=== PATIENT | male | born 1935 | race Caucasian/White ===

== ENCOUNTER 2016-09-22 11:41 | Emergency (ER) | payer MEDICARE, OTHER ==
--- NOTE | 2016-09-22 12:16 | ED ---
General Adult HPI - General Chief complaint: Recheck/Abnormal Lab/Rx Stated complaint: Dx dehydrated Time Seen by Provider: 09/22/16 11:50 Source: patient, RN notes reviewed Mode of arrival: wheelchair Limitations: no limitations - History of Present Illness Initial comments: This is an 81-year-old male who presents emergency Department complaining of having a cough and occasionally feeling a little short of breath. Patient states she went to see his primary medical care doctor today and he was told to come the emergency department because they thought he was dehydrated. Patient states she doesn't feel dehydrated patient states he had a 4 day episode of diarrhea which stopped 3 days ago and since he's been drinking quite a bit of water every day. Patient does not believe he needs to be in the emergency department. Patient denies any palpitations or chest pain. Patient denies dizziness lightheadedness or near syncopal episode. Patient denies any fever or chills. Patient states the cough is nonproductive. Patient denies abdominal pain patient denies any nausea vomiting diarrhea. - Related Data Home Medications Medication Instructions Recorded Confirmed Aspirin 81 mg PO HS 11/28/13 09/22/16 Acetaminophen/Diphenhydramine 1 tab PO HS 09/22/16 09/22/16 [Tylenol PM 500-25mg] Atorvastatin [Lipitor] 20 mg PO HS 09/22/16 09/22/16 Cholecalciferol [Vitamin D3] 1,000 unit PO DAILY 09/22/16 09/22/16 DULoxetine HCL [Cymbalta] 30 mg PO DAILY 09/22/16 09/22/16 Gabapentin 600 mg PO TID 09/22/16 09/22/16 Lidocaine 4% Cream [Lmx 4] 1 applic TOPICAL DAILY PRN 09/22/16 09/22/16 Lisinopril [Prinivil] 5 mg PO DAILY 09/22/16 09/22/16 Naproxen 500 mg PO BID 09/22/16 09/22/16 Vit C/E/Zn/Coppr/Lutein/Zeaxan 1 cap PO BID 09/22/16 09/22/16 [Preservision Areds 2 Softgel] Allergies Allergy/AdvReac Type Severity Reaction Status Date / Time codeine Allergy Rash/Hives Verified 09/22/16 12:12 Review of Systems ROS Statement: Those systems with pertinent positive or pertinent negative responses have been documented in the HPI. ROS Other: All systems not noted in ROS Statement are negative. Past Medical History Past Medical History: Coronary Artery Disease (CAD), Hyperlipidemia, Hypertension Additional Past Medical History / Comment(s): RADHA FEET NEUROPATHY, PREVIOUS RX FOR HTN-NO LONGER TAKING, RIGHT INGUINAL HERNIA History of Any Multi-Drug Resistant Organisms: None Reported Past Surgical History: Coronary Bypass/CABG, Orthopedic Surgery Additional Past Surgical History / Comment(s): RADHA FOOT SX, CABG X1,RT INGUINAL REPAIR Past Anesthesia/Blood Transfusion Reactions: No Reported Reaction Past Psychological History: No Psychological Hx Reported Smoking Status: Former smoker Past Alcohol Use History: None Reported Past Drug Use History: None Reported - Past Family History Mother Family Medical History: Cancer, Diabetes Mellitus Brother(s) Family Medical History: Cancer, Diabetes Mellitus, Myocardial Infarction (AL) Additional Family Medical History / Comment(s): HEART PROBLEMS Father Family Medical History: Myocardial Infarction (AL) Sister(s) Family Medical History: Myocardial Infarction (AL) General Exam - General Exam Comments Initial Comments: GENERAL: Patient is well-developed and well-nourished. Patient is nontoxic and well- hydrated and is in no acute distress. ENT: Neck is soft and supple. No significant lymphadenopathy is noted. Oropharynx is clear. Moist mucous membranes. Neck has full range of motion without eliciting any pain. EYES: The sclera were anicteric and conjunctiva were pink and moist. Extraocular movements were intact and pupils were equal round and reactive to light. Eyelids were unremarkable. PULMONARY: Unlabored respirations. Good breath sounds bilaterally. No audible rales rhonchi or wheezing was noted. CARDIOVASCULAR: There is a regular rate and rhythm without any murmurs gallops or rubs. ABDOMEN: Soft and nontender with normal bowel sounds. No palpable organomegaly was noted. There is no palpable pulsatile mass. SKIN: Skin is clear with no lesions or rashes and otherwise unremarkable. NEUROLOGIC: Patient is alert and oriented x3. Cranial nerves II through XII are grossly intact. Motor and sensory are also intact. Normal speech, volume and content. Symmetrical smile. MUSCULOSKELETAL: Normal extremities with adequate strength and full range of motion. No lower extremity swelling or edema. No calf tenderness. LYMPHATICS: No significant lymphadenopathy is noted PSYCHIATRIC: Normal psychiatric evaluation. Limitations: no limitations Course Vital Signs 09/22/16 09/22/16 09/22/16 11:49 13:02 14:38 Temperature 98.1 F Pulse Rate 91 78 80 Respiratory 16 18 Rate Blood Pressure 120/57 127/69 132/73 O2 Sat by Pulse 93 L 93 L 93 L Oximetry 09/22/16 09/22/16 15:30 16:03 Temperature Pulse Rate 86 88 Respiratory 18 18 Rate Blood Pressure 133/74 119/57 O2 Sat by Pulse 93 L 93 L Oximetry Medical Decision Making - Medical Decision Making EKG shows normal sinus rhythm at 82 bpm IA interval 180 QRS is 78 QT interval 338 QTC is 394. Patient's EKG shows no ST segment elevation or depression or T wave abnormalities are noted. CT of the chest shows interstitial lung disease no PE. - Lab Data Result diagrams: 09/22/16 13:45 09/22/16 14:46 Lab Results 09/22/16 09/22/16 09/22/16 Range/Units 13:45 13:45 13:45 WBC 8.9 (3.8-10.6) k/uL RBC 4.53 (4.30-5.90) m/uL Hgb 13.3 (13.0-17.5) gm/dL Hct 39.5 (39.0-53.0) % MCV 87.3 (80.0-100.0) fL MCH 29.4 (25.0-35.0) pg MCHC 33.7 (31.0-37.0) g/dL RDW 14.5 (11.5-15.5) % Plt Count 426 (150-450) k/uL Neutrophils % (Manual) 73.0 % Band Neutrophils % 2.0 % Lymphocytes % (Manual) 8.0 % Monocytes % (Manual) 8.0 % Eosinophils % (Manual) 9.0 % Neutrophils # (Manual) 6.7 (1.3-7.7) k/uL Lymphocytes # (Manual) 0.7 L (1.0-4.8) k/uL Monocytes # (Manual) 0.7 (0-1.0) k/uL Eosinophils # (Manual) 0.8 H (0-0.7) k/uL Nucleated RBCs 0 (0-0) /100 WBC Manual Slide Review Performed Poikilocytosis (manual Present Anisocytosis (manual) Present D-Dimer 1.83 H (<0.60) mg/L FEU Sodium (137-145) mmol/L Potassium (3.5-5.1) mmol/L Chloride (98-107) mmol/L Carbon Dioxide (22-30) mmol/L Anion Gap mmol/L BUN (9-20) mg/dL Creatinine (0.66-1.25) mg/dL Est GFR (MDRD) Af Amer (>60 ml/min/1.73 sqM) Est GFR (MDRD) Non-Af (>60 ml/min/1.73 sqM) Glucose (74-99) mg/dL Calcium (8.4-10.2) mg/dL Total Bilirubin (0.2-1.3) mg/dL AST (17-59) U/L ALT (21-72) U/L Alkaline Phosphatase (38-126) U/L Troponin I <0.012 (0.000-0.034) ng/mL NT-Pro-B Natriuret Pep pg/mL Total Protein (6.3-8.2) g/dL Albumin (3.5-5.0) g/dL 09/22/16 09/22/16 Range/Units 14:46 16:11 WBC (3.8-10.6) k/uL RBC (4.30-5.90) m/uL Hgb (13.0-17.5) gm/dL Hct (39.0-53.0) % MCV (80.0-100.0) fL MCH (25.0-35.0) pg MCHC (31.0-37.0) g/dL RDW (11.5-15.5) % Plt Count (150-450) k/uL Neutrophils % (Manual) % Band Neutrophils % % Lymphocytes % (Manual) % Monocytes % (Manual) % Eosinophils % (Manual) % Neutrophils # (Manual) (1.3-7.7) k/uL Lymphocytes # (Manual) (1.0-4.8) k/uL Monocytes # (Manual) (0-1.0) k/uL Eosinophils # (Manual) (0-0.7) k/uL Nucleated RBCs (0-0) /100 WBC Manual Slide Review Poikilocytosis (manual Anisocytosis (manual) D-Dimer (<0.60) mg/L FEU Sodium 140 (137-145) mmol/L Potassium 5.1 (3.5-5.1) mmol/L Chloride 107 (98-107) mmol/L Carbon Dioxide 20 L (22-30) mmol/L Anion Gap 13 mmol/L BUN 53 H (9-20) mg/dL Creatinine 1.20 (0.66-1.25) mg/dL Est GFR (MDRD) Af Amer >60 (>60 ml/min/1.73 sqM) Est GFR (MDRD) Non-Af 58 (>60 ml/min/1.73 sqM) Glucose 80 (74-99) mg/dL Calcium 10.2 (8.4-10.2) mg/dL Total Bilirubin 0.5 (0.2-1.3) mg/dL AST 28 (17-59) U/L ALT 60 (21-72) U/L Alkaline Phosphatase 131 H (38-126) U/L Troponin I (0.000-0.034) ng/mL NT-Pro-B Natriuret Pep 110 pg/mL Total Protein 6.5 (6.3-8.2) g/dL Albumin 3.3 L (3.5-5.0) g/dL Disposition Clinical Impression: Interstitial lung disease Disposition: HOME SELF-CARE Condition: Good Instructions: Dyspnea (ED) Referrals: Jung Green MD [Primary Care Provider] - 1-2 days Time of Disposition: 16:47
--- NOTE | 2016-09-22 13:03 | XR ---
EXAMINATION TYPE: XR chest 2V DATE OF EXAM: 09/22/2016 COMPARISON: Prior chest x-ray 06/30/2014 HISTORY: Difficulty breathing TECHNIQUE: Frontal and lateral views of the chest are obtained. FINDINGS: Patient is post median sternotomy and rotated. Interstitium is increased and there are ove rlying cardiac leads. Heart size is likely stable accounting for differences in technique, there is b iapical pleural thickening. No pneumothorax or pleural effusion. Pulmonary vascularity and zhanna not s ignificantly changed. IMPRESSION: Interstitial lung disease, correlate for possible pulmonary venous hypertension and inte rstitial edema. Follow-up is recommended.
[2016-09-22 13:04] VITALS: RESP 18
[2016-09-22 13:59] LABS: CH 29.8; CHCM 34.3; HCT 39.5 % (39.0-53.0); HDW 3.07; HGB 13.3 gm/dL (13.0-17.5); MCH 29.4 pg (25.0-35.0); MCHC 33.7 g/dL (31.0-37.0); MCV 87.3 fL (80.0-100.0); Mean Platelet Volume 8.8; RBC 4.53 m/uL (4.30-5.90); RDW 14.5 % (11.5-15.5); WBC 8.9 k/uL (3.8-10.6); WBC (Perox) 9.47
[2016-09-22 14:22] LABS: Add Differential Manual Differential
[2016-09-22 14:24] LABS: Nucleated Red Blood Cells 0 /100 WBC (0-0); Total Cells Counted 100
[2016-09-22 14:29] LABS: Manual Review Performed
[2016-09-22 15:14] LABS: ALT 60 U/L (21-72); AST 28 U/L (17-59); Alkaline Phosphatase 131 U/L (38-126); Anion Gap 13 mmol/L; Blood Urea Nitrogen 53 mg/dL (9-20); Calcium 10.2 mg/dL (8.4-10.2); Carbon Dioxide 20 mmol/L (22-30); Chloride 107 mmol/L (98-107); Glucose 80 mg/dL (74-99); Non-African American GFR(MDRD) 58 (>60 ml/min/1.73 sqM); Potassium 5.1 mmol/L (3.5-5.1); Sodium 140 mmol/L (137-145); Total Bilirubin 0.5 mg/dL (0.2-1.3); Total Protein 6.5 g/dL (6.3-8.2)
[2016-09-22] MEDS ORDERED: RX INFO: IV CONTRAST WAS GIVEN 1 EACH MISC MISCELLANE PRN (15:14)
--- NOTE | 2016-09-22 16:11 | CT ---
EXAMINATION TYPE: CT chest angio for PE DATE OF EXAM: 09/22/2016 COMPARISON: NONE HISTORY: Shortness of breath rule out pulmonary embolism CONTRAST: CT chest with contrast and 3D reconstruction with MIP imaging is performed with IV Contrast, patient injected with 80 mL of Visipaque 320. Contrast-enhanced CT of the chest was performed through the course of the pulmonary arteries with patrice g and mediastinal window settings submitted. 3D reconstruction with MIP imaging was also performed. PULMONARY ARTERIES: The pulmonary arteries and their major tributaries are patent. I do not see mike dence for sizable filling defect to suggest pulmonary embolic process. LUNGS: Scattered subpleural fibrosis. Scattered groundglass infiltrates within the upper lobes may re flect acute inflammatory process. Scattered emphysematous changes identified. MEDIASTINUM: Ascending thoracic aortic aneurysm measuring 4.2 cm AP dimension. No evidence for dissec tion. The heart is mildly enlarged. Small sliding-type hiatal hernia. No evidence for mediastinal mas s. No mediastinal lymph nodes greater than 1cm. HILAR STRUCTURES: No evidence for mass. No hilar lymph nodes greater than 1 cm. UPPER ABDOMEN: No significant abnormality is seen. IMPRESSION: 1. No evidence for Pulmonary embolism at this time. 2. Subpleural fibrosis throughout both lung silver. Scattered areas of groundglass infiltrate may ref lect acute inflammatory process. 3. Ascending thoracic aortic aneurysm. 4. Small sliding-type hiatal hernia.
[2016-09-22] MEDS ORDERED: SODIUM CHLORIDE 0.9% 1,000 ML IV ONE (16:48)
[2016-09-22 17:11] VITALS: BP 113/59; PULSE 87; TEMP 98.7
== END 2016-09-22 17:41 | disposition home or self-care (01) ==
LOC: EC 11:41
DX: J84.9 Interstitial pulmonary disease, unspecified (principal); R19.7 Diarrhea, unspecified; I25.10 Atherosclerotic heart disease of native coronary artery without angina pectoris; I10 Essential (primary) hypertension; E78.5 Hyperlipidemia, unspecified; Z87.891 Personal history of nicotine dependence; Z79.82 Long term (current) use of aspirin; Z79.1 Long term (current) use of non-steroidal anti-inflammatories (NSAID); Z79.899 Other long term (current) drug therapy; Z88.5 Allergy status to narcotic agent
CPT/HCPCS: 36415; 93005; 85379; 83880; 80053; 84484; 85025; 71020; 71275; 99284; 96360; Q9967

== ENCOUNTER → 2016-11-14 | Outpatient (CLI) | payer MEDICARE, OTHER ==
--- NOTE | 2016-11-14 14:35 | CT ---
EXAMINATION TYPE: CT chest wo con DATE OF EXAM: 11/14/2016 COMPARISON: CTA chest September 22, 2016 HISTORY: interstitial lung disease CT DLP: 199.0 mGycm. Automated Exposure Control for Dose Reduction was Utilized. TECHNIQUE: CT scan of the thorax is performed without IV contrast. High resolution protocol with 10 mm sequences obtained in supine and prone technique FINDINGS: LUNGS: Background of moderate emphysematous change is present. There is some reticulation and fibrosi s bilaterally most prominent in the periphery of the lower lungs. There is suspicious residual 7 mm n odule right midlung on axial image 29 less prominent than prior study though evaluation for subcentim eter nodularity is suboptimal on this exam due to protocol. There is moderate biapical pleural and pa renchymal scarring redemonstrated. No bronchiectasis or suspicious peribronchial wall thickening. No pleural effusion or pneumothorax is present. There is interval improvement in scattered groundglass o pacity bilaterally. MEDIASTINUM: Lack of IV contrast is noted to limit evaluation for mediastinal and especially hilar ad enopathy. There are no definitive greater than 1 cm hilar or mediastinal lymph nodes. No cardiomega ly or pericardial effusion is seen. Post CABG changes with mediastinal clips and sternal wires is red emonstrated. Ascending aorta measures up to 4.0 cm in diameter unchanged from prior. OTHER: There is stable small size fixed hiatal hernia. There is multilevel spurring in thoracic spine seen. More prominent spurring and disc space narrowing is seen in lumbar spine on localizer image IMPRESSION: Moderate emphysematous change with scattered fibrosis most prominent in the periphery of the lower lungs, IPF cannot be excluded. Interval improvement in groundglass opacity consistent with resolving edema and/or infiltrates. Note is made of persistent 7 mm right midlung nodule. Appropriate CT follow-up advised.
== END | disposition home or self-care (01) ==
LOC: RADCTMAIN 13:06
PROVIDERS: ATTEND Internal Medicine Sleep Medicine
DX: J43.9 Emphysema, unspecified (principal); J84.10 Pulmonary fibrosis, unspecified; R91.1 Solitary pulmonary nodule; R91.8 Other nonspecific abnormal finding of lung field
CPT/HCPCS: 71250

== ENCOUNTER → 2017-05-08 | Outpatient (CLI) | payer MEDICARE, OTHER ==
--- NOTE | 2017-05-08 10:05 | CT ---
EXAMINATION TYPE: CT chest wo con DATE OF EXAM: 05/08/2017 COMPARISON: 11/14/2016 and 09/22/2016 HISTORY: 82-year-old male COPD, shortness of breath, SHARAN TECHNIQUE: Contiguous axial scanning of the chest without IV contrast. Coronal and sagittal reconstru ctions performed. CT DLP: 700 mGycm Automated exposure control for dose reduction was used. FINDINGS: Median sternotomy wires are present with post-CABG clips. Heart normal size. No pericardial effusion. Ascending aorta mildly aneurysmal at 4.1 cm, unchanged. Moderate atherosclerotic arch calcifications with conventional arch vessel branching anatomy. Ectatic lower descending thoracic aorta at 2.7 cm. Stable 9 mm pulmonary nodule anterior right mid lung along the minor fissure. There is moderate centr ilobular emphysema. Biapical pleural parenchymal scarring. The groundglass infiltrates show improveme nt from 09/22/2016. Some mild patchy peripheral and bibasilar groundglass is present there is also josefa e subpleural microcystic change peripherally in the lower lungs. Borderline enlarged caliber to the main right and left pulmonary arteries at 2.6 and 2.5 cm, respecti vely, suggesting underlying pulmonary arterial hypertension. Prominent cisterna lymph nodes measuring 8 mm in the left tracheobronchial angle, 9 mm precarinal and 1.3 cm subcarinal are unchanged. No thoracic lymphadenopathy by CT size criteria. Small hiatal hernia. Calcified granulomas noted within the spleen. Partially visualized punctate 2 to 3 mm calculus left kidney. There is a 1.5 cm fat density nodule along the anterior first portion of the duodenum compatible with a intramural lipoma. Bones: Endplate spondylosis mid to lower thoracic spine. No osseous destructive process. IMPRESSION: 1. COPD WITH MODERATE EMPHYSEMA. UNDERLYING PULMONARY ARTERIAL HYPERTENSION IS SUSPECTED. 2. MINIMAL RESIDUAL PERIPHERAL AND BIBASILAR GROUNDGLASS AND SUBPLEURAL MICROCYSTIC CHANGE, RELATIVEL Y STABLE COMPARED TO 11/14/2016. IMPROVED FROM 09/22/2016. CORRELATE FOR NSIP. EARLY UIP CHANGES DIF FICULT TO EXCLUDE BUT CONSIDERED LESS LIKELY AT THIS TIME. 2. STABLE 9 MM RIGHT MID LUNG PULMONARY NODULE COMPARED TO 09/22/2016. GIVEN STABILITY OVER 8 MONTH S, A BENIGN ETIOLOGY IS FAVORED. RECOMMEND AN ADDITIONAL ONE-YEAR FOLLOW-UP. 3. STABLE MILD ANEURYSM ASCENDING AORTA (4.1 CM) AND SMALL HIATAL HERNIA.
== END | disposition home or self-care (01) ==
LOC: RADCTMAIN 09:26
PROVIDERS: ATTEND Internal Medicine Sleep Medicine
DX: J43.9 Emphysema, unspecified (principal); I71.2 Thoracic aortic aneurysm, without rupture; R91.8 Other nonspecific abnormal finding of lung field
CPT/HCPCS: 71250

== ENCOUNTER → 2017-10-17 | Outpatient (CLI) | payer MEDICARE, OTHER ==
--- NOTE | 2017-10-17 10:42 | CT ---
EXAMINATION TYPE: CT angio chest DATE OF EXAM: 10/17/2017 COMPARISON: CTA chest September 22, 2016 HISTORY: Shortness of breath rule out pulmonary embolism CT DLP: 516 mGycm. Automated Exposure Control for Dose Reduction was Utilized. CONTRAST: CTA scan of the thorax is performed with IV Contrast, patient injected with 100 mL of Isovue 370, pul monary embolism protocol. MIP Images are created on CT scanner and reviewed. FINDINGS: LUNGS: Fairly moderate underlying emphysematous changes redemonstrated. There is moderate biapical pl eural/parenchymal scarring redemonstrated. There is stable 9 x 8 mm nodule right midlung axial image 72 that appears to correspond to intrafissural lymph node on coronal images presumed benign. There ar e some additional scattered areas of parenchymal fibrosis bilaterally most prominent in the periphery of both lungs. There is marked interval improvement in diffuse groundglass opacity and reticular int erstitial markings bilaterally from prior study consistent with resolving edema and/or infiltrates. N o pleural effusion or pneumothorax is noted bilaterally. Tracheobronchial tree is patent. MEDIASTINUM: There is satisfactory enhancement of the pulmonary artery and its branches, there is no CT evidence for pulmonary embolism. There are no new greater than 1 cm noncalcified hilar or medias tinal lymph nodes. No cardiomegaly or pericardial effusion is seen. Post CABG changes with mediasti nal clips and sternal wires is redemonstrated. OTHER: Small hiatal hernia is redemonstrated. Occasional calcifications scattered throughout the sple en is presumed product of old granulomatous disease. More prominent calcification in region of pancre atic tail likely reflects small calcified splenic artery aneurysm is stable axial image 138. There is multilevel spurring in the spine with slight scoliotic curvature redemonstrated. There is moderate m ixed plaque in visualized aorta. IMPRESSION: 1. No CT evidence for acute pulmonary embolism. 2. Moderate emphysematous change with scattered fairly moderate fibrosis. Marked interval improvement in alveolar and interstitial edema and/or infiltrates bilaterally from prior.
== END | disposition home or self-care (01) ==
LOC: RADCTMAIN 09:44
PROVIDERS: ATTEND Internal Medicine Sleep Medicine
DX: J43.9 Emphysema, unspecified (principal); J84.10 Pulmonary fibrosis, unspecified
CPT/HCPCS: 82565; 84520; 71275; 36415; Q9967

== ENCOUNTER 2019-10-24 10:46 | Observation (INO) | payer MEDICARE, OTHER ==
[2019-10-24] MEDS ORDERED: LIDOCAINE 1% INJ 10MG/ML (20 ML MDV) SQ ONE (11:07)
--- NOTE | 2019-10-24 11:12 | ED ---
Fall HPI <Norm Steel - Last Filed: 10/24/19 13:23> - General Source: patient Mode of arrival: ambulatory <Debby Lima - Last Filed: 10/24/19 13:25> - General Chief Complaint: Fall Stated Complaint: Head Lac Time Seen by Provider: 10/24/19 10:51 - History of Present Illness Initial Comments: Patient is a 84-year-old male presenting to the emergency department via EMS after he fell this morning. Patient states he is unsure how he fell and how long he was out. He states he remembers going to the grocery store, came home and was putting away groceries, the next thing he remembers he was waking up with blood on the floor. She does have a laceration above his left eyebrow, bleeding is controlled with a bandage. Patient states he drove himself to a clinic who in return called EMS to bring him to the ER. Patient denies having any head or neck pain. He denies being on blood thinners. He denies any chest pain, shortness of breath, abdominal pain, extremity pain. He states he has never had a syncopal episode. He denies any new medications. Denies any other recent falls or trauma. He has no further complaints. Upon arrival to the ER, his vital signs are stable. (Debby Lima) - Related Data Home Medications Medication Instructions Recorded Confirmed Aspirin 81 mg PO HS 11/28/13 09/22/16 Acetaminophen/Diphenhydramine 1 tab PO HS 09/22/16 09/22/16 [Tylenol PM 500-25mg] Atorvastatin [Lipitor] 20 mg PO HS 09/22/16 09/22/16 Cholecalciferol [Vitamin D3] 1,000 unit PO DAILY 09/22/16 09/22/16 DULoxetine HCL [Cymbalta] 30 mg PO DAILY 09/22/16 09/22/16 Gabapentin 600 mg PO TID 09/22/16 09/22/16 Lidocaine 4% Cream [Lmx 4] 1 applic TOPICAL DAILY PRN 09/22/16 09/22/16 Naproxen 500 mg PO BID 09/22/16 09/22/16 Vit C/E/Zn/Coppr/Lutein/Zeaxan 1 cap PO BID 09/22/16 09/22/16 [Preservision Areds 2 Softgel] lisinopriL [Prinivil] 5 mg PO DAILY 09/22/16 09/22/16 Allergies Allergy/AdvReac Type Severity Reaction Status Date / Time codeine Allergy Rash/Hives Verified 09/22/16 12:12 Review of Systems ROS Other: All systems not noted in ROS Statement are negative. <RobinsonpattiNorm pisano - Last Filed: 10/24/19 13:23> ROS Other: All systems not noted in ROS Statement are negative. <Debby Lima - Last Filed: 10/24/19 13:25> ROS Statement: Those systems with pertinent positive or pertinent negative responses have been documented in the HPI. Past Medical History Past Medical History: Coronary Artery Disease (CAD), Hyperlipidemia, Hypertension Additional Past Medical History / Comment(s): RADHA FEET NEUROPATHY, PREVIOUS RX FOR HTN-NO LONGER TAKING, RIGHT INGUINAL HERNIA History of Any Multi-Drug Resistant Organisms: None Reported Past Surgical History: Coronary Bypass/CABG, Orthopedic Surgery Additional Past Surgical History / Comment(s): RADHA FOOT SX, CABG X1,RT INGUINAL REPAIR Past Anesthesia/Blood Transfusion Reactions: No Reported Reaction Past Psychological History: No Psychological Hx Reported Smoking Status: Former smoker Past Alcohol Use History: None Reported Past Drug Use History: None Reported - Past Family History Mother Family Medical History: Cancer, Diabetes Mellitus Brother(s) Family Medical History: Cancer, Diabetes Mellitus, Myocardial Infarction ([place]) Additional Family Medical History / Comment(s): HEART PROBLEMS Father Family Medical History: Myocardial Infarction ([place]) Sister(s) Family Medical History: Myocardial Infarction ([place]) <Debby Lima - Last Filed: 10/24/19 13:25> General Exam Limitations: no limitations <Debby Lima - Last Filed: 10/24/19 13:25> - General Exam Comments Initial Comments: GENERAL: Patient is well-developed and well-nourished. Patient is nontoxic and in no acute distress. HEAD: Normocephalic, patient has a hematoma on the left forehead underneath the laceration. EYES: Pupils equal round and reactive to light, extraocular movements intact, sclera anicteric, conjunctiva are normal. Eyelids were unremarkable. No pain with palpation of the orbit, bilaterally. ENT: TMs normal, nares patent, oropharynx clear without exudates. Moist mucous membranes. NECK: Patient arrived in c-collar, no midline tenderness. Normal range of motion, supple without lymphadenopathy or JVD. LUNGS: Unlabored respirations. Breath sounds clear to auscultation bilaterally and equal. No wheezes rales or rhonchi. HEART: Regular rate and rhythm without murmurs, rubs or gallops. ABDOMEN: Soft, nontender, normoactive bowel sounds. No guarding, no rebound. No masses appreciated. : Deferred MUSCULOSKELETAL: Normal extremities with adequate strength and normal range of motion, no pitting or edema. No clubbing or cyanosis. NEUROLOGICAL: Patient is alert and oriented x 3. Motor and sensory are also intact. Cranial nerves II through XII grossly intact. Symmetrical smile. Normal speech, normal gait. PSYCH: Normal mood, normal affect. SKIN: Warm, Dry, normal turgor, no rashes. Patient has a 2 cm T-shaped laceration above his right eyebrow, with a small hematoma present. Bleeding is controlled with a bandage. (Debby Lima) Course <Norm Steel - Last Filed: 10/24/19 13:23> Vital Signs 10/24/19 10/24/19 10/24/19 10:48 11:30 13:08 Temperature 98.0 F Pulse Rate 79 75 Pulse Rate [ 74 Sitting] Pulse Rate [ 87 Standing] Pulse Rate [ 72 Supine] Respiratory 18 16 Rate Blood Pressure 143/77 171/85 Blood Pressure 146/83 [Sitting] Blood Pressure 138/82 [Standing] Blood Pressure 173/83 [Supine] O2 Sat by Pulse 98 99 Oximetry - Reevaluation(s) Reevaluation #1: 10/24/19 13:23 Patient evaluated, resting comfortably, stable vitals, orthostatic vitals do reveal that the patient is symptomatic while standing. He is given IV hydration. He will be kept for telemetry, hydration, echo. Case discussed with Dr. Rodas he will admit. (Norm Steel) Procedures - Laceration Laceration #1 Consent Obtained: verbal consent Indication: laceration Site: face (Left forehead) Size (cm): 2 Description: irregular (T-shaped) Depth: simple, single layer Anesthetic Used: lidocaine 1% Anesthesia Technique: local infiltration Amount (mls): 3 Pre-repair: irrigated extensively Type of Sutures: nylon Size of Sutures: 5-0 Number of Sutures: 6 Technique: simple, interrupted Patient Tolerated Procedure: well <Debby Lima - Last Filed: 10/24/19 13:25> Medical Decision Making - Lab Data Result diagrams: 10/24/19 11:50 10/24/19 11:50 <Norm Steel - Last Filed: 10/24/19 13:23> - Lab Data Result diagrams: 10/24/19 11:50 10/24/19 11:50 <Debby Lima - Last Filed: 10/24/19 13:25> - Medical Decision Making Patient is an 84-year-old male who had a syncopal episode at home and then came to, drove himself to a clinic who then called EMS. Patient does not know how he fell. He does live alone. He does have a 2 cm T state laceration to his left eyebrow. He is not on blood thinners. EMS did place a c-collar. He denies any kind of pain at this time. Besides the laceration and hematoma, his exam is unremarkable. EKG shows no acute process. Secondary to syncopal episode I did do some blood work was currently reveals no acute process. (Debby Lima) - Lab Data Lab Results 10/24/19 10/24/19 10/24/19 Range/Units 11:50 11:50 11:50 WBC 12.3 H (3.8-10.6) k/uL RBC 4.87 (4.30-5.90) m/uL Hgb 13.8 (13.0-17.5) gm/dL Hct 43.3 (39.0-53.0) % MCV 88.9 (80.0-100.0) fL MCH 28.4 (25.0-35.0) pg MCHC 32.0 (31.0-37.0) g/dL RDW 14.6 (11.5-15.5) % Plt Count 275 (150-450) k/uL Neutrophils % 79 % Lymphocytes % 8 % Monocytes % 6 % Eosinophils % 4 % Basophils % 1 % Neutrophils # 9.7 H (1.3-7.7) k/uL Lymphocytes # 1.0 (1.0-4.8) k/uL Monocytes # 0.7 (0-1.0) k/uL Eosinophils # 0.5 (0-0.7) k/uL Basophils # 0.1 (0-0.2) k/uL PT 10.4 (9.0-12.0) sec INR 1.0 (<1.2) APTT 23.9 (22.0-30.0) sec Sodium 141 (137-145) mmol/L Potassium 5.7 H (3.5-5.1) mmol/L Chloride 107 (98-107) mmol/L Carbon Dioxide 29 (22-30) mmol/L Anion Gap 5 mmol/L BUN 28 H (9-20) mg/dL Creatinine 1.12 (0.66-1.25) mg/dL Est GFR (CKD-EPI)AfAm 69 (>60 ml/min/1.73 sqM) Est GFR (CKD-EPI)NonAf 60 (>60 ml/min/1.73 sqM) Glucose 111 H (74-99) mg/dL Calcium 9.5 (8.4-10.2) mg/dL Total Bilirubin 0.6 (0.2-1.3) mg/dL AST 22 (17-59) U/L ALT 20 (4-49) U/L Alkaline Phosphatase 109 (38-126) U/L Troponin I (0.000-0.034) ng/mL Total Protein 6.7 (6.3-8.2) g/dL Albumin 4.0 (3.5-5.0) g/dL 10/24/19 Range/Units 11:50 WBC (3.8-10.6) k/uL RBC (4.30-5.90) m/uL Hgb (13.0-17.5) gm/dL Hct (39.0-53.0) % MCV (80.0-100.0) fL MCH (25.0-35.0) pg MCHC (31.0-37.0) g/dL RDW (11.5-15.5) % Plt Count (150-450) k/uL Neutrophils % % Lymphocytes % % Monocytes % % Eosinophils % % Basophils % % Neutrophils # (1.3-7.7) k/uL Lymphocytes # (1.0-4.8) k/uL Monocytes # (0-1.0) k/uL Eosinophils # (0-0.7) k/uL Basophils # (0-0.2) k/uL PT (9.0-12.0) sec INR (<1.2) APTT (22.0-30.0) sec Sodium (137-145) mmol/L Potassium (3.5-5.1) mmol/L Chloride (98-107) mmol/L Carbon Dioxide (22-30) mmol/L Anion Gap mmol/L BUN (9-20) mg/dL Creatinine (0.66-1.25) mg/dL Est GFR (CKD-EPI)AfAm (>60 ml/min/1.73 sqM) Est GFR (CKD-EPI)NonAf (>60 ml/min/1.73 sqM) Glucose (74-99) mg/dL Calcium (8.4-10.2) mg/dL Total Bilirubin (0.2-1.3) mg/dL AST (17-59) U/L ALT (4-49) U/L Alkaline Phosphatase (38-126) U/L Troponin I <0.012 (0.000-0.034) ng/mL Total Protein (6.3-8.2) g/dL Albumin (3.5-5.0) g/dL - EKG Data EKG Comments: Normal sinus rhythm, possible left atrial enlargement, no signs of acute is chemia. Ventricular rate 76, NJ interval 170, QT 370. (Debby Lima) Disposition <Norm Steel - Last Filed: 10/24/19 13:23> Decision Date: 10/24/19 Decision Time: 13:25 <Debby Lima - Last Filed: 10/24/19 13:25> Clinical Impression: Syncope, Fall, Orthostatic hypotension Disposition: ADMITTED IP TO THIS [facility] Condition: Stable Referrals: Jung Green MD [Primary Care Provider] - 1-2 days
--- NOTE | 2019-10-24 11:47 | CT ---
EXAMINATION TYPE: CT brain cspine wo con, CT facial bones wo con DATE OF EXAM: 10/24/2019 COMPARISON: NONE HISTORY: Fall injury with headache, facial pain, and neck pain. CT DLP: 1196.7 (accession [id number]), Inc. in brain/c-spine (accession [id number]) [facility]. Automated Expo sure Control for Dose Reduction was Utilized. TECHNIQUE: CT scan of the head and cervical spine are performed without contrast. FINDINGS: There is no acute intracranial hemorrhage or midline shift identified. Mild to moderate d iffuse ventricular and sulcal prominence. Damico-white matter differentiation fairly well maintained f or patient's age. The calvarium is intact. The mandible is intact. Temporomandibular joints are maintained bilaterally. The zygomatic arches are intact bilaterally. The pterygoid plates are intact. Nasal bones are intact. Orbital floors and wall s are intact. The globes are intact bilaterally. Intraconal fat is preserved bilaterally. There are h ypoplastic bilateral frontal sinuses. There is mild mucosal thickening with small mucous retention cy st or polyp in the left maxillary sinus inferiorly. Small left orbital region noted. Cervical spine is visualized in its entirety from C1 through upper thoracic levels and demonstrates l evoconvex scoliosis centered upper thoracic spine without evidence of acute fracture or dislocation. Straightening of spine on sagittal images. Prevertebral soft tissue appears within normal limits. Th e C1-C2 articulation shows asymmetric left-sided narrowing and spurring on coronal images. Vertebral body heights are maintained. There is [id number] multilevel spurring and disc space narrowin g in the cervical spine. There is posterior spinal canal stimulator from the C3-C4 disc space through the superior C7 level. Axial images show multilevel uncovertebral facet degenerative changes bilaterally contributing to mul tilevel bilateral neural foraminal narrowing. Visualized portion of the thyroid gland is unremarkable . Visualized lung apices show no pneumothorax. IMPRESSION: 1. There is no acute fracture or dislocation evident in the cervical spine. 2. No acute intracranial hemorrhage or midline shift is seen. 3. No acute displaced facial bone fracture. Small focal left frontal acute subcutaneous hematoma.
[2019-10-24 12:02] LABS: Basophils # (A) 0.1 k/uL (0-0.2); Basophils % (A) 1 %; Eosinophils # (A) 0.5 k/uL (0-0.7); Eosinophils % (A) 4 %; HCT 43.3 % (39.0-53.0); HGB 13.8 gm/dL (13.0-17.5); Lymphocytes % (A) 8 %; MCH 28.4 pg (25.0-35.0); MCV 88.9 fL (80.0-100.0); Mean Platelet Volume 7.9; Monocytes # (A) 0.7 k/uL (0-1.0); Monocytes % (A) 6 %; Neutrophils # (A) 9.7 k/uL (1.3-7.7); Neutrophils % (A) 79 %; Platelet Count 275 k/uL (150-450); RBC 4.87 m/uL (4.30-5.90); RDW 14.6 % (11.5-15.5); WBC 12.3 k/uL (3.8-10.6)
[2019-10-24 12:14] LABS: Calcium 9.5 mg/dL (8.4-10.2); Potassium 5.7 mmol/L (3.5-5.1); Total Bilirubin 0.6 mg/dL (0.2-1.3); Total Protein 6.7 g/dL (6.3-8.2)
[2019-10-24 12:18] LABS: Partial Thromboplastin Time 23.9 sec (22.0-30.0); Prothrombin Time 10.4 sec (9.0-12.0)
--- NOTE | 2019-10-24 12:18 | XR ---
EXAMINATION TYPE: XR chest 2V DATE OF EXAM: 10/24/2019 COMPARISON: Chest x-ray October 17, 2017. 2 view chest x-ray September 22, 2016. HISTORY: Syncope. Weakness. TECHNIQUE: Frontal and lateral views of the chest are obtained. FINDINGS: There is background chronic emphysematous and pulmonary fibrotic changes without suspiciou s new air space opacity, pleural effusion, or pneumothorax seen bilaterally. Overlying sternal wires and mediastinal clips are redemonstrated. The cardiac silhouette size remains within normal limits. The osseous structures are intact. IMPRESSION: Chronic changes without acute pulmonary process.
[2019-10-24] MEDS ORDERED: NALOXONE 0.4 MG/ML 1 ML VIAL IV PRN (13:21)
[2019-10-24] MEDS ORDERED: SODIUM CHLORIDE 0.9% 1,000 ML IV SCH (13:30)
[2019-10-24] MEDS ORDERED: CYCLOBENZAPRINE 5 MG TAB PO PRN (14:18)
[2019-10-24] MEDS ORDERED: NAPROXEN 250 MG TAB PO PRN (14:18)
[2019-10-24] MEDS ORDERED: SODIUM POLYSTYRENE SULFONATE 15 GM/60 ML BOTTLE PO STA (14:26)
[2019-10-24] MEDS: DULoxetine HCL 60 MG CAPSULE.DR PO SCH (15:26)
[2019-10-24] MEDS: ENOXAPARIN 40 MG/0.4 ML SYRINGE SQ SCH (15:26)
[2019-10-24] MEDS: SODIUM CHLORIDE 0.9% 1,000 ML IV SCH (15:29)
--- NOTE | 2019-10-24 17:08 | P.HPIM ---
History of Present Illness H&P Date: 10/24/19 Chief Complaint: Past out History of presenting complaint: This is a pleasant 84 the patient . Chronic stable medical conditions include coronary artery disease with a bypass, hyperlipidemia, hypertension, Andree arthritis, pulmonary fibrosis, peripheral neuropathy, diverticulosis, chronic cervical pain. Patient is up in the kitchen doing things next thing he remembers is waking up on the floor and bleeding from his forehead. Patient denies having any chest pain or palpitation. Had no premonitory symptoms. No tongue biting or incontinence. Patient received stitches to the forehead. Very late rarely when patient gets gets up he gets dizzy. Currently no chest pain or short of breath. Review of systems: GEN.: None EYES: None HEENT: Left forehead laceration NECK: None RESPIRATORY: None CARDIOVASCULAR: None GASTROINTESTINAL: None GENITOURINARY: None MUSCULOSKELETAL: Joint pains LYMPHATICS: None HEMATOLOGICAL: None PSYCHIATRY: None NEUROLOGICAL: Nil focal.. Past medical history to include: Coronary artery disease with a bypass, hypertension, hyperlipidemia, osteoarthritis, pulmonary fibrosis, peripheral neuropathy, diverticulosis, peripheral arterial disease, chronic cervical pain, early macular degeneration Social history: Lives alone. Patient smoked from 1954 through 1981. No alcohol. Physical examination: VITAL SIGNS: 98, 74, blood pressure lying down 173/8 3, standing 1 38 x 82, 99% room air GENERAL: BMI 30, propped up in bed, awake. EYES: Pupils equal. Conjunctiva normal. HEENT: External appearance of nose and ears normal, oral cavity grossly normal laceration on the left forehead with stitches. NECK: JVD not raised; masses not palpable. HEART: First and second heart sounds are normal; no edema. LUNGS: Respiratory rate normal; clear to auscultation. ABDOMEN: Soft, nontender, liver spleen not palpable, no masses palpable. PSYCH: Alert and oriented x3; mood and affect normal. NEUROLOGICAL: Cranial nerves grossly intact; no facial asymmetry, power and sensation grossly intact. MUSCULAR skeletal: Evidence of OA LYMPHATICS: No lymph nodes palpable in the axilla and neck INVESTIGATIONS, reviewed in the clinical context: White count 12.3 hemoglobin 13.8 platelets 275 potassium 5.7 creatinine 1.12 EKG tracing personally reviewed by me-normal sinus rhythm Chest x-ray film personally reviewed by me-possible chronic changes Assessment: -This is a patient who had an episode of passing out. Had no premonitory symptoms. No seizure supportive evidence. Patient's found to be be orthostatic. -Rule out arrhythmia patient is on a telemetry -Coronary artery disease with history of bypass -Essential hypertension -Hyperlipidemia -Primary osteoarthritis -Chronic pulmonary fibrosis -Peripheral neuropathy -Colonic diverticulosis -Chronic cervical pain Plan: Patient be given IV fluids and check orthostatics again. We'll see her do a CT angiogram the neck to look for any vascular compromise. Is also due pain x-ray of the neck. Home medications to be continued. Patient's been on telemetry. Care was discussed with the patient questions answered. Past Medical History Past Medical History: Coronary Artery Disease (CAD), Eye Disorder, Hyperlipidemia, Hypertension, Osteoarthritis (OA), Respiratory Disorder, Vascular Disorder Additional Past Medical History / Comment(s): PT states his physician discontinued his HTN medications, pulmonary fibrosis, murmur, neuropathy bilateral feet, diverticular disease/benign polyps, poor circulation L leg, arthritis bilateral knees/hands/neck, chronic cercical pain, bilateral beginnings of macular degeneration History of Any Multi-Drug Resistant Organisms: None Reported Past Surgical History: Coronary Bypass/CABG, Heart Catheterization, Hernia Repair, Orthopedic Surgery Additional Past Surgical History / Comment(s): 2007 CABG 1 vessel, bilateral feet corrective surgery, R inguinal hernia repair, colonoscopy/benign polypectomy Past Anesthesia/Blood Transfusion Reactions: No Reported Reaction Additional Past Anesthesia/Blood Transfusion Reaction / Comment(s): Pt unsure if he received blood with CABG surgery Smoking Status: Former smoker - Past Family History Mother Family Medical History: Cancer, Diabetes Mellitus Brother(s) Family Medical History: Cancer, Diabetes Mellitus, Myocardial Infarction ([place]) Additional Family Medical History / Comment(s): Brother had several MIs. He is . Father Family Medical History: Myocardial Infarction ([place]) Additional Family Medical History / Comment(s): father of a MT at the age of 63 yrs. Sister(s) Family Medical History: Myocardial Infarction ([place]) Medications and Allergies Home Medications Medication Instructions Recorded Confirmed Type Aspirin 81 mg PO HS 11/28/13 10/24/19 History Atorvastatin [Lipitor] 20 mg PO HS 09/22/16 10/24/19 History Cholecalciferol [Vitamin D3] 1,000 unit PO DAILY 09/22/16 10/24/19 History Naproxen 500 mg PO BID PRN 09/22/16 10/24/19 History Vit C/E/Zn/Coppr/Lutein/Zeaxan 1 cap PO DAILY 09/22/16 10/24/19 History [Preservision Areds 2 Softgel] Cyclobenzaprine [Flexeril] 5 mg PO HS PRN 10/24/19 10/24/19 History DULoxetine HCL [Cymbalta] 60 mg PO DAILY 10/24/19 10/24/19 History Fluticasone/Vilanterol [Breo 1 puff INHALATION RT-DAILY 10/24/19 10/24/19 History Ellipta 100-25 Mcg Inhaler] Allergies Allergy/AdvReac Type Severity Reaction Status Date / Time codeine Allergy Rash/Hives Verified 10/24/19 13:36 Physical Exam Vitals: Vital Signs Temp Pulse Pulse Pulse Pulse Resp BP 10/24/19 15:20 97.7 F 78 18 10/24/19 15:00 98.2 F 70 16 156/82 10/24/19 13:08 74 87 72 10/24/19 11:30 75 16 171/85 10/24/19 10:48 98.0 F 79 18 143/77 BP BP BP Pulse Ox 10/24/19 15:20 173/81 99 10/24/19 15:00 99 10/24/19 13:08 146/83 138/82 173/83 10/24/19 11:30 99 10/24/19 10:48 98 Intake and Output 10/24/19 10/24/19 10/24/19 06:59 14:59 22:59 Other: Weight 84.368 kg 84.368 kg Results CBC & Chem 7: 10/24/19 11:50 10/24/19 11:50 Labs: Abnormal Lab Results - Last 24 Hours (Table) 10/24/19 10/24/19 Range/Units 11:50 11:50 WBC 12.3 H (3.8-10.6) k/uL Neutrophils # 9.7 H (1.3-7.7) k/uL Potassium 5.7 H (3.5-5.1) mmol/L BUN 28 H (9-20) mg/dL Glucose 111 H (74-99) mg/dL Thrombosis Risk Factor Assmnt - Choose All That Apply Any of the Below Risk Factors Present?: Yes Each Factor Represents 1 point: Obesity (BMI >25) Other Risk Factors: Yes Each Risk Factor Represents 3 Points: Age 75 years or older Other congenital or acquired thrombophilia - If yes, enter type in comment: No Thrombosis Risk Factor Assessment Total Risk Factor Score: 4 Thrombosis Risk Factor Assessment Level: Moderate Risk
[2019-10-24] MEDS ORDERED: CALCIUM GLUCONATE 1 GM in SODIUM CHLORIDE 0.9% 100 ML IVPB ONE (18:00)
--- NOTE | 2019-10-24 18:35 | XR ---
PROCEDURE: XR cervical spine w flex/ext - 9V DATE AND TIME: 10/24/2019 6:11 PM CLINICAL INDICATION: PHH; Chronic neck pain. Patient passed out. TECHNIQUE: 9 views were obtained, including lateral views in the neutral, extension and flexion posit ions. COMPARISON: None FINDINGS: Bilateral paramidline metallic leads are superimposed over the spinal laminar junction on t he lateral projections, and superimposed over the spinous processes on the AP projections. These lead s extend from the level of C3 to the level of C7. There is no fracture. No spinal malalignment. Markedly advanced cervical spondylosis changes are seen at all levels. No focal skeletal lesion. The soft tissues are unremarkable. IMPRESSION: No acute radiographic process.
--- NOTE | 2019-10-24 18:38 | ECHOF ---
Referral Reason:Syncopal event MEASUREMENTS -------- HEIGHT: 167.6 cm WEIGHT: 84.4 kg BP: 119/76 RVIDd: 3.5 cm (< 3.3) IVSd: 1.4 cm (0.6 - 1.1) LVIDd: 3.6 cm (3.9 - 5.3) LVPWd: 1.5 cm (0.6 - 1.1) IVSs: 1.8 cm LVIDs: 2.7 cm LVPWs: 2.0 cm LAESV Index (A-L): 31.23 ml/m Ao Diam: 3.0 cm (2.0 - 3.7) AV Cusp: 2.0 cm (1.5 - 2.6) MV EXCURSION: 14.414 mm (> 18.000) MV EF SLOPE: 61 mm/s (70 - 150) EPSS: 0.7 cm MV E Luke: 0.56 m/s MV DecT: 253 ms MV A Luke: 0.86 m/s MV E/A Ratio: 0.65 RAP: 5.00 mmHg RVSP: 31.69 mmHg FINDINGS -------- Sinus rhythm. This was a technically difficult study with suboptimal views. The left ventricular size is normal. There is moderate concentric left ventricular hypertrophy. O verall left ventricular systolic function is low-normal with, an EF between 50 - 55 %. Septal wall motion is delayed and consistent with prior cardiac surgery. The right ventricle is mildly enlarged. LA is midly dilated 29-33ml/m2. The right atrium was not well visualized. 5.0mg of Lumason was utilized for enhancement of images Interatrial and interventricular septum intact. There is mild aortic valve sclerosis. There is no evidence of aortic regurgitation. There is no e vidence of aortic stenosis. Mild mitral annular calcification present. Mild mitral regurgitation is present. Mild tricuspid regurgitation present. Right ventricular systolic pressure is normal at < 35 mmHg. The right ventricular systolic pressure, as measured by Doppler, is 31.69mmHg. The pulmonic valve was not well visualized. Trace/mild (physiologic) pulmonic regurgitation. The aortic root size is normal. IVC Not well visulized. There is no pericardial effusion. CONCLUSIONS -------- 1. There is moderate concentric left ventricular hypertrophy. 2. Overall left ventricular systolic function is low-normal with, an EF between 50 - 55 %. 3. Septal wall motion is delayed and consistent with prior cardiac surgery. 4. The right ventricle is mildly enlarged. 5. LA is midly dilated 29-33ml/m2. 6. There is mild aortic valve sclerosis. 7. Mild mitral regurgitation is present. 8. Mild tricuspid regurgitation present. 9. Trace/mild (physiologic) pulmonic regurgitation. R PROGRAMMER: Lashell Pineda RDCS
[2019-10-24] MEDS: SYMBICORT 80-4.5 MCG INHALER INHALATION SCH (19:33)
[2019-10-24] MEDS: ACETAMINOPHEN TAB 325 MG TAB PO PRN (20:02)
[2019-10-24] MEDS: ATORVASTATIN 20 MG TAB PO SCH (20:02)
[2019-10-24] MEDS: ASPIRIN 81 MG PO SCH (20:02)
--- NOTE | 2019-10-24 22:16 | CT ---
EXAMINATION TYPE: CT angio neck with contrast and with 3-D reconstruction renderings DATE OF EXAM: 10/24/2019 HISTORY: Syncope. COMPARISON: 01/29/[address] DLP: 528.9 mGycm. Automated Exposure Control for Dose Reduction was Utilized. TECHNIQUE: CTA scan of the neck is performed with IV Contrast, patient injected with 65ml mL of Isov ue 370, axial images are obtained, coronal and sagittal reformatted images are reviewed. Three-D amie nstructed images are created on an independent workstation and reviewed. FINDINGS: GREAT VASCULATURE: Ascending aorta is mildly dilated, measuring 4 cm caliber. CAROTID ARTERY SYSTEMS: The right and left CCA are widely patent, there is prominent right-sided tort uosity noted. The right and left ECA are widely patent. Previously known proximal right ICA stenosis currently measures approximately 90% luminal diameter na rrowing, with prominent poststenotic dilation noted. Remainder of the right ICA widely patent. Previously known proximal left ICA stenosis currently measures approximately 50-60% luminal diameter narrowing, with mild poststenotic dilation noted. Remainder of the left ICA widely patent. VERTEBRAL ARTERY SYSTEM: The right and left vertebral arteries are widely patent throughout their cer vical course. OTHER: No acute soft tissue or skeletal findings. IMPRESSION: 1. RIGHT ICA: APPROXIMATELY 90% STENOSIS. 2. LEFT ICA: APPROXIMATELY 50-60% STENOSIS. 3. ASCENDING AORTIC DIAMETER 4.0 CM.
[2019-10-25] MEDS: SODIUM CHLORIDE 0.9% 1,000 ML IV SCH ×2 (03:01→08:47)
[2019-10-25 07:16] LABS: Calcium 9.2 mg/dL (8.4-10.2); Potassium 4.4 mmol/L (3.5-5.1)
[2019-10-25] MEDS: SYMBICORT 80-4.5 MCG INHALER INHALATION SCH ×2 (08:38→19:09)
[2019-10-25] MEDS: CHOLECALCIFEROL 1,000 UNIT TAB PO SCH (08:42)
[2019-10-25] MEDS: DULoxetine HCL 60 MG CAPSULE.DR PO SCH (08:42)
[2019-10-25] MEDS: ENOXAPARIN 40 MG/0.4 ML SYRINGE SQ SCH (08:42)
[2019-10-25] MEDS: ASPIRIN 81 MG PO SCH (20:28)
[2019-10-25] MEDS: FLUDROCORTISONE 0.1 MG TAB PO SCH (20:28)
[2019-10-25] MEDS: ATORVASTATIN 20 MG TAB PO SCH (20:29)
[2019-10-25] MEDS: ACETAMINOPHEN TAB 325 MG TAB PO PRN (20:29)
--- NOTE | 2019-10-25 21:02 | P.PN ---
Progress Note - Text Progress Note Date: 10/25/19 Chief Complaint: Past out History of presenting complaint: This is a pleasant 84 the patient . Chronic stable medical conditions include coronary artery disease with a bypass, hyperlipidemia, hypertension, Andree arthritis, pulmonary fibrosis, peripheral neuropathy, diverticulosis, chronic cervical pain. Patient is up in the kitchen doing things next thing he remembers is waking up on the floor and bleeding from his forehead. Patient denies having any chest pain or palpitation. Had no premonitory symptoms. No tongue biting or incontinence. Patient received stitches to the forehead. Very rarely when patient gets gets up, he gets dizzy. Patient admitted with orthostatic hypertension leading to syncope and left forehead laceration with stitches. Started IV fluids. Today-feeling better. Still orthostatic. No chest pain. Review of systems: Was done for constitutional, cardiovascular, GI, pulmonary. relevant finding as above Active Medications Acetaminophen (Tylenol Tab) 650 mg PO Q6HR PRN PRN Reason: Mild Pain or Fever > 100.5 Last Admin: 10/25/19 20:29 Dose: 650 mg Documented by: Aspirin (Aspirin) 81 mg PO HS [facility] Last Admin: 10/25/19 20:28 Dose: 81 mg Documented by: Atorvastatin Calcium (Lipitor) 20 mg PO HS [facility] Last Admin: 10/25/19 20:29 Dose: 20 mg Documented by: Budesonide/Formoterol Fumarate (Symbicort 80-4.5 Mcg Inhaler) 2 puff INHALATION RT-BID [facility] Last Admin: 10/25/19 19:09 Dose: 2 puff Documented by: Cholecalciferol (Vitamin D3 (25 Mcg = 1000 Iu)) 1,000 unit PO DAILY [facility] Last Admin: 10/25/19 08:42 Dose: 1,000 unit Documented by: Cyclobenzaprine HCl (Flexeril) 5 mg PO HS PRN PRN Reason: Muscle Spasm Duloxetine HCl (Cymbalta) 60 mg PO DAILY [facility] Last Admin: 10/25/19 08:42 Dose: 60 mg Documented by: Enoxaparin Sodium (Lovenox) 40 mg SQ DAILY [facility] Last Admin: 10/25/19 08:42 Dose: 40 mg Documented by: Fludrocortisone Acetate (Florinef) 0.1 mg PO BID [facility] Last Admin: 10/25/19 20:28 Dose: 0.1 mg Documented by: Naloxone HCl (Narcan) 0.2 mg IV Q2M PRN PRN Reason: Opioid Reversal Naproxen (Naprosyn) 500 mg PO BID PRN PRN Reason: Pain Physical examination: VITAL SIGNS: 97.6, 82, 16, 150/76, 95% room air GENERAL: Negative bed, awake EYES: Pupils equal. Conjunctiva normal. HEENT: External appearance of nose and ears normal, oral cavity grossly normal laceration on the left forehead with stitches. NECK: JVD not raised; masses not palpable. HEART: First and second heart sounds are normal; no edema. LUNGS: Respiratory rate normal; clear to auscultation. ABDOMEN: Soft, nontender, liver spleen not palpable, no masses palpable. PSYCH: Alert and oriented x3; mood and affect normal. NEUROLOGICAL: Cranial nerves grossly intact; no facial asymmetry, power and sensation grossly intact. INVESTIGATIONS, reviewed in the clinical context: Potassium 4.4 creatinine 0.98 Previous testing White count 12.3 hemoglobin 13.8 platelets 275 potassium 5.7 creatinine 1.12 EKG tracing personally reviewed by me-normal sinus rhythm Chest x-ray film personally reviewed by me-possible chronic changes 2-D echocardiogram-a 50-55% Cervical spine [id number] marked advanced cervical spondylosis CT angios and neck with contrast-approximately 90% stenosis in the right ICA, left ICA 50-60%, ascending Aorta diameter 4 cm Assessment: -Symptomatic orthostatic hypertension. Bilateral MATEUSZ stockings added. Add Florinef 0.1 mg twice a day. -Right internal carotid artery stenosis about 90%. -Rule out arrhythmia patient is on a telemetry -Coronary artery disease with history of bypass -Essential hypertension -Hyperlipidemia -Primary osteoarthritis -Chronic pulmonary fibrosis -Peripheral neuropathy -Colonic diverticulosis -Chronic cervical pain Plan: DC IV fluids. Add Florinef 0.1 mg twice a day. MATEUSZ stockings. Consult vascular surgery.
[2019-10-26 04:02] VITALS: RESP 16
[2019-10-26 07:06] LABS: Calcium 8.8 mg/dL (8.4-10.2); Potassium 4.3 mmol/L (3.5-5.1)
[2019-10-26 08:34] VITALS: TEMP 97.5
[2019-10-26] MEDS: CHOLECALCIFEROL 1,000 UNIT TAB PO SCH (08:34)
[2019-10-26] MEDS: FLUDROCORTISONE 0.1 MG TAB PO SCH (08:34)
[2019-10-26] MEDS: DULoxetine HCL 60 MG CAPSULE.DR PO SCH (08:34)
[2019-10-26] MEDS: ENOXAPARIN 40 MG/0.4 ML SYRINGE SQ SCH (08:35)
[2019-10-26] MEDS: SYMBICORT 80-4.5 MCG INHALER INHALATION SCH (09:03)
[2019-10-26 12:05] VITALS: BP 141/63; PULSE 75
--- NOTE | 2019-10-26 19:33 | P.DS ---
Providers Date of admission: 10/24/19 13:26 Expected date of discharge: 10/26/19 Attending physician: Gumaro Rodas Consults: 10/25/19 21:03 Consult Physician Routine Consulting Provider: Janee Bustamante Consult Reason/Comments: Right ICA 90% Do you want consulting provider notified?: Yes Primary care physician: [facility] Course: Chief Complaint: Past out History of presenting complaint: This is a pleasant 84 the patient . Chronic stable medical conditions include coronary artery disease with a bypass, hyperlipidemia, hypertension, Andree arthritis, pulmonary fibrosis, peripheral neuropathy, diverticulosis, chronic cervical pain. Patient is up in the kitchen doing things next thing he remembers is waking up on the floor and bleeding from his forehead. Patient denies having any chest pain or palpitation. Had no premonitory symptoms. No tongue biting or incontinence. Patient received stitches to the forehead. Very rarely when patient gets gets up, he gets dizzy. Patient admitted with orthostatic hypertension leading to syncope and left forehead laceration with stitches. Started IV fluids. Patient is given MATEUSZ stockings. Florinef was added. Orthostatic corrected. Today-patient doing very well today. Discussed with the patient. Has bruising on the left eye which is improving. Patient has 90% stenosis in the right internal carotid artery. Discussed with Dr. Bustamante from us with surgery. Patient has no focal signs. Patient will follow-up as an outpatient. Questions were answered. Discussion and discharge planning more than 35 minutes Physical examination: VITAL SIGNS: 97.5, 88, 16, 132/61, 97% room air GENERAL: Sitting on bed, comfortable EYES: Pupils equal. Conjunctiva normal. Left periorbital bilateral bruising HEENT: External appearance of nose and ears normal, oral cavity grossly normal laceration on the left forehead with stitches. NECK: JVD not raised; masses not palpable. HEART: First and second heart sounds are normal; no edema. LUNGS: Respiratory rate normal; clear to auscultation. ABDOMEN: Soft, nontender, liver spleen not palpable, no masses palpable. PSYCH: Alert and oriented x3; mood and affect normal. NEUROLOGICAL: Cranial nerves grossly intact; no facial asymmetry, power and sensation grossly intact. INVESTIGATIONS, reviewed in the clinical context: Potassium 4.3 creatinine 0.9 to Previous testing White count 12.3 hemoglobin 13.8 platelets 275 potassium 5.7 creatinine 1.12 EKG tracing personally reviewed by me-normal sinus rhythm Chest x-ray film personally reviewed by me-possible chronic changes 2-D echocardiogram-a 50-55% Cervical spine [id number] marked advanced cervical spondylosis CT angios and neck with contrast-approximately 90% stenosis in the right ICA, left ICA 50-60%, ascending Aorta diameter 4 cm Assessment: -Symptomatic orthostatic hypertension. Bilateral MATEUSZ stockings added. Add Florinef 0.1 mg twice a day.-Much improved. Leading to syncope on presentation. -Right internal carotid artery stenosis about 90%. -Coronary artery disease with history of bypass -Essential hypertension -Hyperlipidemia -Primary osteoarthritis -Chronic pulmonary fibrosis -Peripheral neuropathy -Colonic diverticulosis -Chronic cervical pain Disposition: Home Patient Condition at Discharge: Stable Plan - Discharge Summary Discharge Rx Participant: No New Discharge Prescriptions: New Fludrocortisone [Florinef] 0.1 mg PO BID #60 tab Continue Aspirin 81 mg PO HS Naproxen 500 mg PO BID PRN PRN Reason: Pain Cholecalciferol [Vitamin D3 (25 Mcg = 1000 Iu)] 1,000 unit PO DAILY Atorvastatin [Lipitor] 20 mg PO HS Vit C/E/Zn/Coppr/Lutein/Zeaxan [Preservision Areds 2 Softgel] 1 cap PO DAILY Cyclobenzaprine [Flexeril] 5 mg PO HS PRN PRN Reason: Muscle Spasm DULoxetine HCL [Cymbalta] 60 mg PO DAILY Fluticasone/Vilanterol [Breo Ellipta 100-25 Mcg Inhaler] 1 puff INHALATION RT-DAILY Discharge Medication List Aspirin 81 mg PO HS 11/28/13 [History] Atorvastatin [Lipitor] 20 mg PO HS 09/22/16 [History] Cholecalciferol [Vitamin D3 (25 Mcg = 1000 Iu)] 1,000 unit PO DAILY 09/22/16 [History] Naproxen 500 mg PO BID PRN 09/22/16 [History] Vit C/E/Zn/Coppr/Lutein/Zeaxan [Preservision Areds 2 Softgel] 1 cap PO DAILY 09/22/16 [History] Cyclobenzaprine [Flexeril] 5 mg PO HS PRN 10/24/19 [History] DULoxetine HCL [Cymbalta] 60 mg PO DAILY 10/24/19 [History] Fluticasone/Vilanterol [Breo Ellipta 100-25 Mcg Inhaler] 1 puff INHALATION RT- DAILY 10/24/19 [History] Fludrocortisone [Florinef] 0.1 mg PO BID #60 tab 10/26/19 [Rx] Follow up Appointment(s)/Referral(s): Jung Green MD [Primary Care Provider] - 1-2 days Janee Bustamante DO [STAFF PHYSICIAN] - 1 Week Patient Instructions/Handouts: Syncope (DC) Discharge Disposition: HOME SELF-CARE
== END 2019-10-26 13:33 | disposition home or self-care (01) ==
LOC: EC 10:46 → 3SCARD 13:26
PROVIDERS: ADMIT Hospitalist; ATTEND Hospitalist
DX: I95.1 Orthostatic hypotension (principal); S01.81XA Laceration without foreign body of other part of head, initial encounter; S00.12XA Contusion of left eyelid and periocular area, initial encounter; I65.21 Occlusion and stenosis of right carotid artery; I25.10 Atherosclerotic heart disease of native coronary artery without angina pectoris; I10 Essential (primary) hypertension; E78.5 Hyperlipidemia, unspecified; M19.90 Unspecified osteoarthritis, unspecified site; J84.10 Pulmonary fibrosis, unspecified; G62.9 Polyneuropathy, unspecified; K57.30 Diverticulosis of large intestine without perforation or abscess without bleeding; M47.892 Other spondylosis, cervical region; I73.9 Peripheral vascular disease, unspecified; H35.30 Unspecified macular degeneration; M17.0 Bilateral primary osteoarthritis of knee; M19.042 Primary osteoarthritis, left hand; M19.041 Primary osteoarthritis, right hand; I08.3 Combined rheumatic disorders of mitral, aortic and tricuspid valves; E66.9 Obesity, unspecified; Z68.30 Body mass index [BMI] 30.0-30.9, adult; Z79.82 Long term (current) use of aspirin; Z79.899 Other long term (current) drug therapy; Z79.1 Long term (current) use of non-steroidal anti-inflammatories (NSAID); Z79.51 Long term (current) use of inhaled steroids; Z88.5 Allergy status to narcotic agent; Z87.19 Personal history of other diseases of the digestive system; Z95.1 Presence of aortocoronary bypass graft; Z98.890 Other specified postprocedural states; Z87.891 Personal history of nicotine dependence; Z86.010 Personal history of colon polyps; Z80.9 Family history of malignant neoplasm, unspecified; Z83.3 Family history of diabetes mellitus; Z82.49 Family history of ischemic heart disease and other diseases of the circulatory system; W19.XXXA Unspecified fall, initial encounter; Y93.89 Activity, other specified; Y92.010 Kitchen of single-family (private) house as the place of occurrence of the external cause
CPT/HCPCS: 96372 ×3; 12011; 99285; 36415; 94640 ×4; 93005; 80053; 80048 ×2; 84484; 85025; 85610; 85730; 72052; 71046; 72125; 70486; 70450; 70498; G0378 ×3; C8929; J2001; J1650 ×3; J0610; Q9950; Q9967; 93306

== ENCOUNTER → 2020-07-20 | Outpatient (CLI) | payer MEDICARE, OTHER ==
--- NOTE | 2020-07-20 11:07 | CT ---
EXAMINATION TYPE: CT lumbar spine wo con DATE OF EXAM: 07/20/2020 10:04 AM COMPARISON: None. HISTORY: Lumbago CT DLP: 898 mGycm Automated exposure control for dose reduction was used. Unenhanced CT of the lumbar spine was performed. Bone and soft tissue window settings are submitted as well as coronal and sagittal reconstructions. There are 5 lumbar-type vertebra. There is slight levoconvex scoliosis centered at L3 level. There is slight grade 1 retrolisthesis L2 on L3. Vertebral body heights are maintained. Advanced disc space n arrowing with endplate sclerosis and vacuum disc phenomenon right L2-L3 and L3-L4 levels. Moderate to advanced disc space narrowing with vacuum disc phenomenon at the left L1-L2 and the L4-L5 level. Mil d to moderate disc space narrowing secondary phenomenon at the L5-S1 level. Additional moderate multi level anterior and lateral spurring. Axial images at T12-L1 level appear within normal limits. Axial images at L1-L2 level show posterior disc complex with mild to moderate uncovertebral facet deg enerative changes and ligamentum flavum hypertrophy. There is effacement of the anterior and benzol still operator l ateral thecal sac on axial image 21. There is asymmetric xvlg-ce-nlgjyvtr left-sided inferior neural foraminal narrowing due to foraminal spur disc complex. Axial images at the L2-L3 level show spondylolisthesis and more prominent right paracentral spur disc complex effacing the anterior thecal sac. There is mild/moderate facet arthropathy and ligament hype rtrophy effacing the posterior lateral thecal sac. There is erxlwspa-cr-kpqydx right and oiuq-xo-wroa rate left-sided neural foraminal narrowing. Axial images at L3-L4 level show moderate facet arthropathy and ligamentum flavum hypertrophy pressin g posterior lateral thecal sac. There is moderate posterior spur disc complex effacing anterior theca l sac. There is moderate bilateral neural foraminal narrowing. Axial images at the L4-L5 level show moderate to advanced facet arthropathy and ligamentum flavum hyp ertrophy effacing posterior lateral thecal sac. There is left paracentral spur disc complex. There is moderate to severe left and mild right-sided neural foraminal narrowing. Encroachment on exiting lef t L4 nerve suspected sagittal images 22 and 23. Axial images at L5-S1 level show moderate facet arthropathy bilaterally. There is posterior spur disc complex. There is moderate to severe left sided neural foraminal narrowing. There is mild right-side d neural foraminal narrowing. Encroachment on right L5 nerve suspected image 23 suspected. Moderate to severe calcified plaque of the ectatic overlying abdominal aorta without greater than 3.0 cm aneurysm. IMPRESSION: Scoliosis. L2-L3 spondylolisthesis. Moderate to advanced multilevel degenerative changes as detailed above.
== END | disposition home or self-care (01) ==
LOC: RADCTMAIN 09:28
PROVIDERS: ATTEND Psychiatry & Neurology Neurology
DX: M47.816 Spondylosis without myelopathy or radiculopathy, lumbar region (principal); M43.16 Spondylolisthesis, lumbar region
CPT/HCPCS: 72131

== ENCOUNTER → 2021-01-04 | Outpatient (CLI) | payer MEDICARE, OTHER | END | disposition home or self-care (01) | LOC: LABWHC1 14:15 | PROVIDERS: ATTEND Psychiatry & Neurology Neurology | DX: Z01.812 Encounter for preprocedural laboratory examination (principal) | CPT/HCPCS: 93005 ==

== ENCOUNTER → 2021-01-11 | Outpatient (CLI) | payer MEDICARE, OTHER | END | disposition home or self-care (01) | LOC: LABWHC1 10:01 | PROVIDERS: ATTEND Psychiatry & Neurology Neurology | DX: Z01.812 Encounter for preprocedural laboratory examination (principal); Z20.822 Contact with and (suspected) exposure to COVID-19 | CPT/HCPCS: U0003; C9803; U0005 ==

== ENCOUNTER 2022-01-02 17:53 | Inpatient (IN) | payer MEDICARE, OTHER ==
--- NOTE | 2022-01-02 18:15 | ED ---
Allergic Reaction HPI - General Chief complaint: Allergic Reaction Stated complaint: Allergic Reaction Time Seen by Provider: 01/02/22 17:57 Source: EMS Mode of arrival: EMS Limitations: altered mental status (Patient does appear mildly delirious) - History of Present Illness Initial Comments: This patient is an 86-year-old man brought in by EMS to have evaluation for suspected ALLERGIC reaction. The patient reportedly taking a penicillin family antibiotic for pneumonia. The patient had been having some skin redness for 1-2 days. Today family noted that the rash was worsening. He had lip swelling. The patient was also becoming disoriented and was too weak to get up from his chair. They phoned EMS who found the patient hypotensive on their arrival with blood pressure reported to be with systolic pressure of 80s. EMS started an IV started giving IV fluids, gave dose of Solu-Medrol 125 mg and epinephrine 0.3 mg. Not a transported the patient here. On arrival, the patient is per the report more alert area he is able to give details of his history now. He reports feeling weak and rundown for a couple of days. Here he denies pain, d yspnea, nausea and vomiting. He does complain of itching. MD Complaint: hives, facial swelling -: days(s) Exposure: medication Symptoms: rash, lip swelling Severity: severe Treatment Prior to Arrival: epinephrine, steroids Previous Allergy History: none - Related Data Home Medications Medication Instructions Recorded Confirmed Aspirin 81 mg PO HS 11/28/13 01/02/22 Atorvastatin [Lipitor] 20 mg PO HS 09/22/16 01/02/22 Vit C/E/Zn/Coppr/Lutein/Zeaxan 1 cap PO BID 09/22/16 01/02/22 [Preservision Areds 2 Softgel] Acetaminophen/Diphenhydramine 1 tab PO HS 01/02/22 01/02/22 [Tylenol PM 500-25mg] Amoxic-Pot Clav 500-125 mg 1 tab PO BID 01/02/22 01/02/22 [Augmentin 500-125 mg] Cholecalciferol [Vitamin D3 (25 25 mcg PO DAILY 01/02/22 01/02/22 Mcg = 1000 Iu)] Metoprolol Tartrate [Lopressor] 25 mg PO BID 01/02/22 01/02/22 carBAMazepine [TEGretol] 100 mg PO BID 01/02/22 01/02/22 Allergies Allergy/AdvReac Type Severity Reaction Status Date / Time codeine Allergy Rash/Hives Verified 01/02/22 18:42 Sulfa (Sulfonamide Allergy Unknown Verified 01/02/22 18:42 Antibiotics) Review of Systems ROS Statement: Those systems with pertinent positive or pertinent negative responses have been documented in the HPI. ROS Other: All systems not noted in ROS Statement are negative. Limitations: ROS unobtainable due to patients medical condition (Delirium) Respiratory: Reports: other (Frequent sneezing). Denies: cough, dyspnea Cardiovascular: Denies: chest pain Gastrointestinal: Denies: abdominal pain, nausea, vomiting, diarrhea Genitourinary: Denies: dysuria Musculoskeletal: Denies: back pain Skin: Reports: rash Neurological: Denies: headache Past Medical History Past Medical History: Coronary Artery Disease (CAD), Eye Disorder, Hyperlipidemia, Hypertension, Osteoarthritis (OA), Respiratory Disorder, Vascu lar Disorder Additional Past Medical History / Comment(s): PT states his physician discontinued his HTN medications, pulmonary fibrosis, murmur, neuropathy bilateral feet, diverticular disease/benign polyps, poor circulation L leg, arthritis bilateral knees/hands/neck, chronic cercical pain, bilateral beginnings of macular degeneration History of Any Multi-Drug Resistant Organisms: None Reported Past Surgical History: Coronary Bypass/CABG, Heart Catheterization, Hernia Repair, Orthopedic Surgery Additional Past Surgical History / Comment(s): 2007 CABG 1 vessel, bilateral feet corrective surgery, R inguinal hernia repair, colonoscopy/benign polypectomy Past Anesthesia/Blood Transfusion Reactions: No Reported Reaction Additional Past Anesthesia/Blood Transfusion Reaction / Comment(s): Pt unsure if he received blood with CABG surgery Past Psychological History: No Psychological Hx Reported Smoking Status: Former smoker Past Alcohol Use History: None Reported Past Drug Use History: None Reported - Past Family History Mother Family Medical History: Cancer, Diabetes Mellitus Brother(s) Family Medical History: Cancer, Diabetes Mellitus, Myocardial Infarction (ND) Additional Family Medical History / Comment(s): Brother had several MIs. He is . Father Family Medical History: Myocardial Infarction (ND) Additional Family Medical History / Comment(s): father of a ND at the age of 63 yrs. Sister(s) Family Medical History: Myocardial Infarction (ND) General Exam Limitations: no limitations General appearance: alert Head exam: Present: atraumatic, normocephalic Eye exam: Present: normal appearance. Absent: scleral icterus, conjunctival injection ENT exam: Present: normal oropharynx Neck exam: Present: full ROM. Absent: meningismus Respiratory exam: Present: normal lung sounds bilaterally. Absent: respiratory distress, wheezes, rales, rhonchi, stridor Cardiovascular Exam: Present: normal rhythm, tachycardia (Rate 104 at my exam), normal heart sounds. Absent: systolic murmur, diastolic murmur, rubs, gallop GI/Abdominal exam: Present: soft. Absent: distended, tenderness, guarding, rebound, rigid, mass Extremities exam: Present: normal inspection, normal capillary refill. Absent: pedal edema, calf tenderness Back exam: Present: normal inspection. Absent: CVA tenderness (R), CVA tenderness (L) Neurological exam: Present: alert Skin exam: Present: warm, dry, intact, rash, erythema, urticaria Course Vital Signs 01/02/22 01/02/22 01/02/22 17:57 18:00 18:10 Temperature 98.9 F Pulse Rate 109 H 106 H 106 H Pulse Rate [ Pulse Oximetery ] Respiratory 20 26 H 21 Rate Blood Pressure 121/64 121/64 118/53 Blood Pressure [Right Arm] O2 Sat by Pulse 95 96 94 L Oximetry 01/02/22 01/02/22 01/02/22 18:20 18:30 18:40 Temperature Pulse Rate 107 H 107 H 104 H Pulse Rate [ Pulse Oximetery ] Respiratory 19 18 16 Rate Blood Pressure 118/53 106/52 106/52 Blood Pressure [Right Arm] O2 Sat by Pulse 92 L 95 90 L Oximetry 01/02/22 01/02/22 01/02/22 18:50 19:00 19:10 Temperature Pulse Rate 106 H 106 H 105 H Pulse Rate [ Pulse Oximetery ] Respiratory 19 20 19 Rate Blood Pressure 109/49 109/49 116/74 Blood Pressure [Right Arm] O2 Sat by Pulse 94 L 93 L 93 L Oximetry 01/02/22 01/02/22 01/02/22 19:20 19:30 19:40 Temperature Pulse Rate 105 H 103 H 103 H Pulse Rate [ Pulse Oximetery ] Respiratory 17 20 18 Rate Blood Pressure 116/74 99/56 99/56 Blood Pressure [Right Arm] O2 Sat by Pulse 90 L 95 96 Oximetry 01/02/22 01/02/22 01/02/22 19:50 20:00 20:10 Temperature Pulse Rate 108 H 104 H 101 H Pulse Rate [ Pulse Oximetery ] Respiratory 18 16 22 Rate Blood Pressure 119/69 119/69 122/53 Blood Pressure [Right Arm] O2 Sat by Pulse Oximetry 01/02/22 01/02/22 01/02/22 20:20 20:30 20:40 Temperature Pulse Rate 99 101 H 96 Pulse Rate [ Pulse Oximetery ] Respiratory 22 20 21 Rate Blood Pressure 122/53 109/61 109/61 Blood Pressure [Right Arm] O2 Sat by Pulse Oximetry 01/02/22 01/02/22 01/02/22 20:50 21:00 21:10 Temperature Pulse Rate 97 98 96 Pulse Rate [ Pulse Oximetery ] Respiratory 17 19 19 Rate Blood Pressure 111/46 111/46 115/54 Blood Pressure [Right Arm] O2 Sat by Pulse Oximetry 01/02/22 01/02/22 01/02/22 21:20 21:30 22:17 Temperature 97.8 F Pulse Rate 93 92 Pulse Rate [ Pulse Oximetery ] Respiratory 16 17 Rate Blood Pressure 115/54 121/63 Blood Pressure [Right Arm] O2 Sat by Pulse 96 Oximetry 01/02/22 22:20 Temperature 98.1 F Pulse Rate Pulse Rate [ 88 Pulse Oximetery ] Respiratory 18 Rate Blood Pressure Blood Pressure 111/69 [Right Arm] O2 Sat by Pulse 94 L Oximetry Medical Decision Making - Lab Data Result diagrams: 01/02/22 18:55 01/02/22 18:55 Lab Results 01/02/22 01/02/22 01/02/22 Range/Units 18:55 18:55 18:55 WBC 9.6 (3.8-10.6) k/uL RBC 3.46 L (4.30-5.90) m/uL Hgb 11.0 L (13.0-17.5) gm/dL Hct 30.0 L (39.0-53.0) % MCV 86.9 (80.0-100.0) fL MCH 31.7 (25.0-35.0) pg MCHC 36.5 (31.0-37.0) g/dL RDW 14.1 (11.5-15.5) % Plt Count 112 L (150-450) k/uL MPV 9.5 Neutrophils % 80 % Lymphocytes % 8 % Monocytes % 2 % Eosinophils % 6 % Basophils % 0 % Neutrophils # 7.6 (1.3-7.7) k/uL Lymphocytes # 0.8 L (1.0-4.8) k/uL Monocytes # 0.2 (0-1.0) k/uL Eosinophils # 0.6 (0-0.7) k/uL Basophils # 0.0 (0-0.2) k/uL Sodium 136 L (137-145) mmol/L Potassium 4.0 (3.5-5.1) mmol/L Chloride 107 (98-107) mmol/L Carbon Dioxide 21 L (22-30) mmol/L Anion Gap 8 mmol/L BUN 65 H (9-20) mg/dL Creatinine 1.68 H (0.66-1.25) mg/dL Est GFR (CKD-EPI)AfAm 42 (>60 ml/min/1.73 sqM) Est GFR (CKD-EPI)NonAf 36 (>60 ml/min/1.73 sqM) Glucose 127 H (74-99) mg/dL Calcium 9.5 (8.4-10.2) mg/dL Total Bilirubin 0.5 (0.2-1.3) mg/dL AST 39 (17-59) U/L ALT 63 H (4-49) U/L Alkaline Phosphatase 120 (38-126) U/L Troponin I <0.012 (0.000-0.034) ng/mL Total Protein 6.4 (6.3-8.2) g/dL Albumin 3.0 L (3.5-5.0) g/dL Urine Color Urine Appearance (Clear) Urine pH (5.0-8.0) Ur Specific Blaine (1.001-1.035) Urine Protein (Negative) Urine Glucose (UA) (Negative) Urine Ketones (Negative) Urine Blood (Negative) Urine Nitrite (Negative) Urine Bilirubin (Negative) Urine Urobilinogen (<2.0) mg/dL Ur Leukocyte Esterase (Negative) Urine RBC (0-5) /hpf Urine WBC (0-5) /hpf Ur Squamous Epith Cells (0-4) /hpf Urine Mucus (None) /hpf 01/02/22 Range/Units 19:55 WBC (3.8-10.6) k/uL RBC (4.30-5.90) m/uL Hgb (13.0-17.5) gm/dL Hct (39.0-53.0) % MCV (80.0-100.0) fL MCH (25.0-35.0) pg MCHC (31.0-37.0) g/dL RDW (11.5-15.5) % Plt Count (150-450) k/uL MPV Neutrophils % % Lymphocytes % % Monocytes % % Eosinophils % % Basophils % % Neutrophils # (1.3-7.7) k/uL Lymphocytes # (1.0-4.8) k/uL Monocytes # (0-1.0) k/uL Eosinophils # (0-0.7) k/uL Basophils # (0-0.2) k/uL Sodium (137-145) mmol/L Potassium (3.5-5.1) mmol/L Chloride (98-107) mmol/L Carbon Dioxide (22-30) mmol/L Anion Gap mmol/L BUN (9-20) mg/dL Creatinine (0.66-1.25) mg/dL Est GFR (CKD-EPI)AfAm (>60 ml/min/1.73 sqM) Est GFR (CKD-EPI)NonAf (>60 ml/min/1.73 sqM) Glucose (74-99) mg/dL Calcium (8.4-10.2) mg/dL Total Bilirubin (0.2-1.3) mg/dL AST (17-59) U/L ALT (4-49) U/L Alkaline Phosphatase (38-126) U/L Troponin I (0.000-0.034) ng/mL Total Protein (6.3-8.2) g/dL Albumin (3.5-5.0) g/dL Urine Color Yellow Urine Appearance Clear (Clear) Urine pH 5.0 (5.0-8.0) Ur Specific Blaine 1.026 (1.001-1.035) Urine Protein 1+ H (Negative) Urine Glucose (UA) Negative (Negative) Urine Ketones 1+ H (Negative) Urine Blood Negative (Negative) Urine Nitrite Negative (Negative) Urine Bilirubin Negative (Negative) Urine Urobilinogen 2.0 (<2.0) mg/dL Ur Leukocyte Esterase Small H (Negative) Urine RBC 1 (0-5) /hpf Urine WBC 3 (0-5) /hpf Ur Squamous Epith Cells <1 (0-4) /hpf Urine Mucus Rare H (None) /hpf - EKG Data -: EKG Interpreted by Me EKG shows normal: sinus rhythm, axis (Normal), intervals (Normal), ST-T waves (Normal) Rate: tachycardia (Rate 105 bpm) Disposition Clinical Impression: Allergic reaction to drug Disposition: ADMITTED IP TO THIS HOSP Condition: Fair Is patient prescribed a controlled substance at d/c from ED?: No
[2022-01-02] MEDS ORDERED: SODIUM CHLORIDE 0.9% 1,000 ML IV STA (18:31)
[2022-01-02] MEDS ORDERED: FAMOTIDINE 20 MG/2 ML VIAL IV STA (18:31)
[2022-01-02] MEDS ORDERED: diphenhydrAMINE 50 MG/ML 1 ML VIAL IVP STA (18:32)
[2022-01-02 18:59] LABS: Basophils % (A) 0 %; Eosinophils # (A) 0.6 k/uL (0-0.7); Eosinophils % (A) 6 %; Lymphocytes # (A) 0.8 k/uL (1.0-4.8); Lymphocytes % (A) 8 %; MCH 31.7 pg (25.0-35.0); MCHC 36.5 g/dL (31.0-37.0); MCV 86.9 fL (80.0-100.0); Mean Platelet Volume 9.5; Monocytes # (A) 0.2 k/uL (0-1.0); Monocytes % (A) 2 %; Neutrophils # (A) 7.6 k/uL (1.3-7.7); Neutrophils % (A) 80 %; Platelet Count 112 k/uL (150-450); RBC 3.46 m/uL (4.30-5.90); RDW 14.1 % (11.5-15.5); WBC 9.6 k/uL (3.8-10.6)
[2022-01-02 19:09] LABS: Calcium 9.5 mg/dL (8.4-10.2); Total Bilirubin 0.5 mg/dL (0.2-1.3); Total Protein 6.4 g/dL (6.3-8.2)
--- NOTE | 2022-01-02 19:27 | XR ---
EXAMINATION TYPE: XR chest 1V portable DATE OF EXAM: 01/02/2022 7:07 PM COMPARISON: Chest x-ray 10/24/2019 TECHNIQUE: XR chest 1V portable . CLINICAL INDICATION:Male, 86 years old with history of allergic reaction; FINDINGS: Lungs/Pleura: Low lung volumes. Chronic emphysematous and fibrotic changes. No focal airspace opacity . No pneumothorax or pleural effusion. Pulmonary vascularity: Mild pulmonary vascular congestion. Heart/mediastinum: Cardiomediastinal silhouette is unremarkable. Atherosclerotic calcifications are seen in the aorta. Musculoskeletal: Multiple level degenerative disc disease changes seen throughout the spine. Midline sternotomy wires are noted and stable. IMPRESSION: Chronic emphysematous changes without evidence for focal airspace consolidation.
[2022-01-02 20:23] LABS: Appearance,Urine Clear (Clear); Bilirubin,Urine Negative (Negative); Blood,Urine Negative (Negative); Color,Urine Yellow; Glucose,Urine (UA) Negative (Negative); Ketones,Urine 1+ (Negative); Leukocyte Esterase,Urine Small (Negative); Mucus,Urine Rare /hpf; Nitrite,Urine Negative (Negative); Protein,Urine 1+ (Negative); RBC,Urine 1 /hpf (0-5); Specific Gravity,Urine 1.026 (1.001-1.035); Squamous Epithelial Cell,Urine <1 /hpf (0-4); WBC,Urine 3 /hpf (0-5)
[2022-01-02] MEDS ORDERED: ACETAMINOPHEN TAB 325 MG TAB PO PRN (21:06)
[2022-01-02] MEDS ORDERED: NALOXONE 0.4 MG/ML 1 ML VIAL IV PRN (21:06)
[2022-01-02] MEDS ORDERED: FAMOTIDINE 20 MG/2 ML VIAL IV SCH (21:15)
[2022-01-02] MEDS ORDERED: diphenhydrAMINE 50 MG/ML 1 ML VIAL IVP SCH (21:30)
[2022-01-03] MEDS: diphenhydrAMINE 50 MG/ML 1 ML VIAL IVP SCH ×5 (01:15→23:31)
[2022-01-03] MEDS: SODIUM CHLORIDE 0.9% 1,000 ML IV SCH ×3 (01:16→21:04)
[2022-01-03] MEDS ORDERED: FAMOTIDINE 20 MG/2 ML VIAL IV SCH (01:30)
[2022-01-03] MEDS: METOPROLOL TARTRATE 25 MG TAB PO SCH ×2 (08:45→21:04)
[2022-01-03] MEDS: carBAMazepine 200 MG TAB PO SCH ×2 (08:45→21:03)
[2022-01-03] MEDS ORDERED: predniSONE 20 MG TAB PO SCH (09:00)
[2022-01-03 11:36] LABS: Basophils % (A) 0 %; Eosinophils # (A) 0.4 k/uL (0-0.7); Eosinophils % (A) 4 %; HCT 30.8 % (39.0-53.0); HGB 10.4 gm/dL (13.0-17.5); Lymphocytes # (A) 0.5 k/uL (1.0-4.8); Lymphocytes % (A) 6 %; MCH 30.2 pg (25.0-35.0); MCHC 33.6 g/dL (31.0-37.0); MCV 89.7 fL (80.0-100.0); Mean Platelet Volume 8.8; Monocytes # (A) 0.2 k/uL (0-1.0); Monocytes % (A) 2 %; Neutrophils % (A) 84 %; Platelet Count 138 k/uL (150-450); RBC 3.44 m/uL (4.30-5.90); RDW 13.9 % (11.5-15.5); WBC 8.4 k/uL (3.8-10.6)
[2022-01-03] MEDS: methylPREDNISolone SOD SUCCI 125 MG/2 ML VIAL IV SCH ×3 (11:51→23:32)
[2022-01-03 12:17] LABS: African American GFR (CKD) 47 (>60 ml/min/1.73 sqM); Anion Gap 7 mmol/L; Blood Urea Nitrogen 59 mg/dL (9-20); Calcium 9.5 mg/dL (8.4-10.2); Carbon Dioxide 24 mmol/L (22-30); Chloride 109 mmol/L (98-107); Glucose 183 mg/dL (74-99); Non-African American GFR(CKD) 41 (>60 ml/min/1.73 sqM); Potassium 4.4 mmol/L (3.5-5.1); Sodium 140 mmol/L (137-145)
[2022-01-03 12:30] LABS: C Reactive Protein 5.6 mg/dL (<1.0)
--- NOTE | 2022-01-03 17:50 | CT ---
EXAMINATION TYPE: CT brain wo con DATE OF EXAM: 01/03/2022 COMPARISON: 10/24/2019 HISTORY: confusion CT DLP: 1225 mGycm Automated exposure control for dose reduction was used. There is diffuse cerebral cortical atrophy. There is no mass effect or midline shift. No sign of intr acranial hemorrhage. Calvarium is intact. No evidence of cerebral edema. The skull base is intact. Th ere is normal aeration of the mastoid sinuses. IMPRESSION: Cerebral atrophy. No acute intracranial abnormality. No adverse change.
[2022-01-03] MEDS: QUEtiapine 25 MG TAB PO PRN (21:04)
[2022-01-03] MEDS: ATORVASTATIN 20 MG TAB PO SCH (21:04)
[2022-01-03] MEDS: ASPIRIN 81 MG PO SCH (21:04)
[2022-01-03] MEDS ORDERED: LEVOFLOXACIN 750MG-D5W PMX 750 MG in DEXTROSE/WATER 1 150ML.BAG IVPB SCH (22:00)
--- NOTE | 2022-01-03 22:58 | P.CONS ---
History of Present Illness - Reason for Consult Consult date: 01/03/22 - History of Present Illness Patient is a 86-year-old male who was brought into the ER by the EMS for suspected allergic reaction apparent the patient was taking penicillin family antibiotic for pneumonia and the patient did develop a significant red blotchy patches that is covering most of his body apparently has been going on for few days before presentation to the hospital the patient denies having any difficulty breathing and denies having any sore in his mouth on arrival of EMS patient was noted to be hypotensive with a blood pressure of 80 systolic he was given fluid epinephrine and Solu-Medrol and was brought into the hospital on arrival to the ER the patient was afebrile and no fever have recorded subsequently patient did have a normal white count BUN and creatinine has been mildly elevated urine has been negative patient did have a chest x-ray chronic emphysematous changes without evidence for acute pneumonia patient has been admitted to the hospital infectious was consulted concern for possible pneumonia and need for antibiotic therapy Past Medical History Past Medical History: Coronary Artery Disease (CAD), Eye Disorder, Hyperlipidemia, Hypertension, Osteoarthritis (OA), Respiratory Disorder, Vascular Disorder Additional Past Medical History / Comment(s): PT states his physician discontinued his HTN medications, pulmonary fibrosis, murmur, neuropathy bilateral feet, diverticular disease/benign polyps, poor circulation L leg, arthritis bilateral knees/hands/neck, chronic cercical pain, bilateral beginnings of macular degeneration History of Any Multi-Drug Resistant Organisms: None Reported Past Surgical History: Coronary Bypass/CABG, Heart Catheterization, Hernia Repair, Orthopedic Surgery Additional Past Surgical History / Comment(s): 2007 CABG 1 vessel, bilateral feet corrective surgery, R inguinal hernia repair, colonoscopy/benign polypectomy Past Anesthesia/Blood Transfusion Reactions: No Reported Reaction Additional Past Anesthesia/Blood Transfusion Reaction / Comm: Pt unsure if he received blood with CABG surgery Past Psychological History: No Psychological Hx Reported Smoking Status: Former smoker Past Alcohol Use History: None Reported Past Drug Use History: None Reported - Past Family History Mother Family Medical History: Cancer, Diabetes Mellitus Brother(s) Family Medical History: Cancer, Diabetes Mellitus, Myocardial Infarction ([place]) Additional Family Medical History / Comment(s): Brother had several MIs. He is . Father Family Medical History: Myocardial Infarction ([place]) Additional Family Medical History / Comment(s): father of a [place] at the age of 63 yrs. Sister(s) Family Medical History: Myocardial Infarction ([place]) Medications and Allergies Home Medications Medication Instructions Recorded Confirmed Type Aspirin 81 mg PO HS 11/28/13 01/02/22 History Atorvastatin [Lipitor] 20 mg PO HS 09/22/16 01/02/22 History Vit C/E/Zn/Coppr/Lutein/Zeaxan 1 cap PO BID 09/22/16 01/02/22 History [Preservision Areds 2 Softgel] Acetaminophen/Diphenhydramine 1 tab PO HS 01/02/22 01/02/22 History [Tylenol PM 500-25mg] Amoxic-Pot Clav 500-125 mg 1 tab PO BID 01/02/22 01/02/22 History [Augmentin 500-125 mg] Cholecalciferol [Vitamin D3 (25 25 mcg PO DAILY 01/02/22 01/02/22 History Mcg = 1000 Iu)] Metoprolol Tartrate [Lopressor] 25 mg PO BID 01/02/22 01/02/22 History carBAMazepine [TEGretol] 100 mg PO BID 01/02/22 01/02/22 History Allergies Allergy/AdvReac Type Severity Reaction Status Date / Time codeine Allergy Rash/Hives Verified 01/02/22 18:42 Sulfa (Sulfonamide Allergy Unknown Verified 01/02/22 18:42 Antibiotics) Physical Exam Vitals: Vital Signs Temp Pulse Pulse Resp BP BP Pulse Ox 01/03/22 05:53 98.1 F 90 18 127/66 96 01/03/22 02:03 98.3 F 86 17 121/74 96 01/02/22 22:20 98.1 F 88 18 111/69 94 L 01/02/22 22:17 97.8 F 01/02/22 21:30 92 17 121/63 96 01/02/22 21:20 93 16 115/54 01/02/22 21:10 96 19 115/54 01/02/22 21:00 98 19 111/46 01/02/22 20:50 97 17 111/46 01/02/22 20:40 96 21 109/61 01/02/22 20:30 101 H 20 109/61 01/02/22 20:20 99 22 122/53 01/02/22 20:10 101 H 22 122/53 01/02/22 20:00 104 H 16 119/69 01/02/22 19:50 108 H 18 119/69 01/02/22 19:40 103 H 18 99/56 96 01/02/22 19:30 103 H 20 99/56 95 01/02/22 19:20 105 H 17 116/74 90 L 01/02/22 19:10 105 H 19 116/74 93 L 01/02/22 19:00 106 H 20 109/49 93 L 01/02/22 18:50 106 H 19 109/49 94 L 01/02/22 18:40 104 H 16 106/52 90 L 01/02/22 18:30 107 H 18 106/52 95 01/02/22 18:20 107 H 19 118/53 92 L 01/02/22 18:10 106 H 21 118/53 94 L 01/02/22 18:00 106 H 26 H 121/64 96 01/02/22 17:57 98.9 F 109 H 20 121/64 95 Intake and Output 01/02/22 01/03/22 01/03/22 22:59 06:59 14:59 Other: # Voids 3 # Bowel Movements 3 Weight 75 kg Results CBC & Chem 7: 01/03/22 11:19 01/03/22 11:19 Labs: Abnormal Lab Results - Last 24 Hours (Table) 01/02/22 01/02/22 01/02/22 Range/Units 18:55 18:55 19:55 RBC 3.46 L (4.30-5.90) m/uL Hgb 11.0 L (13.0-17.5) gm/dL Hct 30.0 L (39.0-53.0) % Plt Count 112 L (150-450) k/uL Lymphocytes # 0.8 L (1.0-4.8) k/uL Sodium 136 L (137-145) mmol/L Carbon Dioxide 21 L (22-30) mmol/L BUN 65 H (9-20) mg/dL Creatinine 1.68 H (0.66-1.25) mg/dL Glucose 127 H (74-99) mg/dL ALT 63 H (4-49) U/L Albumin 3.0 L (3.5-5.0) g/dL Urine Protein 1+ H (Negative) Urine Ketones 1+ H (Negative) Ur Leukocyte Esterase Small H (Negative) Urine Mucus Rare H (None) /hpf Assessment and Plan Plan: 1patient presented to hospital with extensive rash possibly related to antibiotic the patient was using in the outpatient setting for presumed p neumonia patient not very clear about the name of that antibiotic will need to find out the exact name and document allergy. 2patient currently with no features of suggestive of pneumonia hence we will hold on any further antibiotic therapy at this point 3patient to continue with the steroids and Benadryl for severe drug-related rash We will follow on clinical condition and cultures to further adjust medication if needed Thank you for this consultation will follow this patient along with you Time with Patient: Greater than 30
--- NOTE | 2022-01-03 23:02 | P.HPIM ---
History of Present Illness H&P Date: 01/03/22 Chief Complaint: Allergic reaction Patient is a 86-year-old male with a known history of interstitial pulmonary fibrosis, coronary artery disease history of CABG, hypertension, osteoarthritis and hyperlipidemia and peripheral vascular disease and prior history of smoking presents to ER for possible allergic reaction. Patient states that he has been having on and off pneumonia and was given antibiotics in the form of Augmentin which he has been taking for the past 1 to 2 days. Today family noticed that he has been having rash all over his body mainly in the face chest and arms. He was also found to have lip swelling and felt too weak to get up from his chair. EMS found the patient to be hypotensive and systolic blood pressure was in 80s. He was given IV Solu-Medrol and IV fluids and epinephrine and transported to ER. Patient seems to be more awake and alert now but is a poor historian. Hard of hearing as well. Patient did take Augmentin course previously without any reaction. Denies any fever or chills. No chest pain. No nausea vomiting abdominal pain o r diarrhea. Denies any recent illnesses. Patient follows with pulmonary as an outpatient. On admission EKG showed sinus tachycardia Chest x-ray showed chronic emphysematous changes without evidence of focal airspace consolidation. Urinalysis is negative for infection. Laboratory data showed WBC 9.6 hemoglobin 11.0 and platelets 112 Sodium 136 potassium 4.0 chloride 107 bicarb is 21 BUN 65 creatinine 1.68 and blood sugar is 127 AST 39 ALT 63 alk phos 120 troponin (x1 negative and albumin 3.0. Review of Systems Constitutional: Patient denies any fever or chills . Generalized weakness. Abdomen: Patient denied any nausea or vomiting or abd. pain Cardiovascular: Patient denies any chest pain or short of breath no palpitations. Respiratory: patient denied any cough . no sputum production. No shortness of breath Neurologic: Patient denied any numbness or tingling headache. Musculoskeletal: Patient denies any complaints of joint swelling or deformity. Skin: Patient does have rash all over the body. Lip swelling Psychiatric: Negative Endocrine: No heat or cold intolerance. No recent weight gain. Genitourinary: No dysuria or hematuria. All other 14 point ROS negative except the above Past Medical History Past Medical History: Coronary Artery Disease (CAD), Eye Disorder, Hyperlipidemia, Hypertension, Osteoarthritis (OA), Respiratory Disorder, Vascular Disorder Additional Past Medical History / Comment(s): PT states his physician discontinued his HTN medications, pulmonary fibrosis, murmur, neuropathy bilateral feet, diverticular disease/benign polyps, poor circulation L leg, arthritis bilateral knees/hands/neck, chronic cercical pain, bilateral beginnings of macular degeneration History of Any Multi-Drug Resistant Organisms: None Reported Past Surgical History: Coronary Bypass/CABG, Heart Catheterization, Hernia Repair, Orthopedic Surgery Additional Past Surgical History / Comment(s): 2007 CABG 1 vessel, bilateral feet corrective surgery, R inguinal hernia repair, colonoscopy/benign polypectomy Past Anesthesia/Blood Transfusion Reactions: No Reported Reaction Additional Past Anesthesia/Blood Transfusion Reaction / Comment(s): Pt unsure if he received blood with CABG surgery Past Psychological History: No Psychological Hx Reported Smoking Status: Former smoker Past Alcohol Use History: None Reported Past Drug Use History: None Reported - Past Family History Mother Family Medical History: Cancer, Diabetes Mellitus Brother(s) Family Medical History: Cancer, Diabetes Mellitus, Myocardial Infarction ([place]) Additional Family Medical History / Comment(s): Brother had several MIs. He is . Father Family Medical History: Myocardial Infarction ([place]) Additional Family Medical History / Comment(s): father of a [place] at the age of 63 yrs. Sister(s) Family Medical History: Myocardial Infarction ([place]) Medications and Allergies Home Medications Medication Instructions Recorded Confirmed Type Aspirin 81 mg PO HS 11/28/13 01/02/22 History Atorvastatin [Lipitor] 20 mg PO HS 09/22/16 01/02/22 History Vit C/E/Zn/Coppr/Lutein/Zeaxan 1 cap PO BID 09/22/16 01/02/22 History [Preservision Areds 2 Softgel] Acetaminophen/Diphenhydramine 1 tab PO HS 01/02/22 01/02/22 History [Tylenol PM 500-25mg] Amoxic-Pot Clav 500-125 mg 1 tab PO BID 01/02/22 01/02/22 History [Augmentin 500-125 mg] Cholecalciferol [Vitamin D3 (25 25 mcg PO DAILY 01/02/22 01/02/22 History Mcg = 1000 Iu)] Metoprolol Tartrate [Lopressor] 25 mg PO BID 01/02/22 01/02/22 History carBAMazepine [TEGretol] 100 mg PO BID 01/02/22 01/02/22 History Allergies Allergy/AdvReac Type Severity Reaction Status Date / Time codeine Allergy Rash/Hives Verified 01/02/22 18:42 Sulfa (Sulfonamide Allergy Unknown Verified 01/02/22 18:42 Antibiotics) Physical Exam Vitals: Vital Signs Temp Pulse Pulse Resp BP BP Pulse Ox 01/03/22 05:53 98.1 F 90 18 127/66 96 01/03/22 02:03 98.3 F 86 17 121/74 96 01/02/22 22:20 98.1 F 88 18 111/69 94 L 01/02/22 22:17 97.8 F 01/02/22 21:30 92 17 121/63 96 01/02/22 21:20 93 16 115/54 01/02/22 21:10 96 19 115/54 01/02/22 21:00 98 19 111/46 01/02/22 20:50 97 17 111/46 01/02/22 20:40 96 21 109/61 01/02/22 20:30 101 H 20 109/61 01/02/22 20:20 99 22 122/53 01/02/22 20:10 101 H 22 122/53 01/02/22 20:00 104 H 16 119/69 01/02/22 19:50 108 H 18 119/69 01/02/22 19:40 103 H 18 99/56 96 01/02/22 19:30 103 H 20 99/56 95 01/02/22 19:20 105 H 17 116/74 90 L 01/02/22 19:10 105 H 19 116/74 93 L 01/02/22 19:00 106 H 20 109/49 93 L 01/02/22 18:50 106 H 19 109/49 94 L 01/02/22 18:40 104 H 16 106/52 90 L 01/02/22 18:30 107 H 18 106/52 95 01/02/22 18:20 107 H 19 118/53 92 L 01/02/22 18:10 106 H 21 118/53 94 L 01/02/22 18:00 106 H 26 H 121/64 96 01/02/22 17:57 98.9 F 109 H 20 121/64 95 Intake and Output 01/02/22 01/03/22 01/03/22 22:59 06:59 14:59 Other: # Voids 3 # Bowel Movements 3 Weight 75 kg PHYSICAL EXAMINATION: Patient is lying in the bed comfortably, no acute distress, awake alert and oriented. Drowsy, confused. Hard of hearing.. HEENT: Normocephalic. Neck is supple. Pupils reactive. Nostrils clear. Oral cavity is moist. Neck reveals no JVD, carotid bruits, or thyromegaly. CHEST EXAMINATION: Trachea is central. Symmetrical expansion. Lung silver clear to auscultation and percussion. CARDIAC: Normal S1, S2 with no gallops. Systolic murmur present. ABDOMEN: Soft. Bowel sounds present. Nontender. No organomegaly. No abdominal bruits. Extremities: reveal no edema. No clubbing or cyanosis Neurologically awake, alert, oriented x3 with well-coordinated movements. No focal deficits noted Skin: Patient does have macular rash all over body.. Psychiatric: Coperative. Could not be assessed completely., Musculoskeletal: No joint swelling or deformity. Normal range of motion. Results CBC & Chem 7: 01/03/22 11:19 01/03/22 11:19 Labs: Abnormal Lab Results - Last 24 Hours (Table) 01/02/22 01/02/22 01/02/22 Range/Units 18:55 18:55 19:55 RBC 3.46 L (4.30-5.90) m/uL Hgb 11.0 L (13.0-17.5) gm/dL Hct 30.0 L (39.0-53.0) % Plt Count 112 L (150-450) k/uL Lymphocytes # 0.8 L (1.0-4.8) k/uL Sodium 136 L (137-145) mmol/L Carbon Dioxide 21 L (22-30) mmol/L BUN 65 H (9-20) mg/dL Creatinine 1.68 H (0.66-1.25) mg/dL Glucose 127 H (74-99) mg/dL ALT 63 H (4-49) U/L Albumin 3.0 L (3.5-5.0) g/dL Urine Protein 1+ H (Negative) Urine Ketones 1+ H (Negative) Ur Leukocyte Esterase Small H (Negative) Urine Mucus Rare H (None) /hpf Thrombosis Risk Factor Assmnt - DVT/VTE Prophylaxis DVT/VTE Prophylaxis: Pharmacologic Prophylaxis ordered - Choose All That Apply Any of the Below Risk Factors Present?: Yes Each Factor Represents 1 point: Obesity (BMI >25) Other Risk Factors: Yes Each Risk Factor Represents 3 Points: Age 75 years or older Thrombosis Risk Factor Assessment Total Risk Factor Score: 4 Thrombosis Risk Factor Assessment Level: Moderate Risk Assessment and Plan Assessment: Acute allergic reaction. Suspected to be due to Augmentin. Hypotension and tachycardia on admission Possible interstitial pneumonia Interstitial pulmonary fibrosis Coronary arteries history of CABG Hypertension Osteoarthritis Peripheral vascular disease Bilateral peripheral neuropathy nondiabetic Macular degeneration Previous history of smoking DVT prophylaxis Heparin subcu Plan: Patient was given a dose of IV Solu-Medrol and continue with IV Solu-Medrol 60 mg every 8 hourly and Benadryl and Zantac. Gentle IV hydration and monitor respiratory status closely. Continue with home medications. Pulmonary was consulted. Follow-up procalcitonin level and repeat CBC and BMP tomorrow. Discussed with family at bedside in detail. Prognosis guarded at this time. Time with Patient: Greater than 30
[2022-01-03] MEDS: HEPARIN SODIUM,PORCINE/PF 5,000 UNIT/0.5 ML SYRINGE SQ SCH (23:32)
[2022-01-04] MEDS ORDERED: QUEtiapine 25 MG TAB PO STA (00:35)
[2022-01-04] MEDS ORDERED: HALOPERIDOL LACTATE 5 MG/ML 1 ML VIAL IM STA (00:35)
[2022-01-04 08:51] LABS: HCT 33.2 % (39.6-50.0); HGB 10.4 g/dL (13.0-17.0); MCH 28.3 pg (27.0-32.0); MCHC 31.3 g/dL (32.0-37.0); MCV 90.2 fL (80.0-97.0); Mean Platelet Volume 11.8 fL (9.5-12.2); NRBC Per 100 WBC 0 /100 WBCS (0.0-0.0); Platelet Count 162 X 10*3/uL (140-440); RBC 3.68 X 10*6/uL (4.40-5.60); RDW 14.2 % (11.5-14.5); WBC 9.16 X 10*3/uL (4.50-10.00)
[2022-01-04 09:18] LABS: African American GFR (CKD) 50.3 (60.0-200.0); Anion Gap 7.3 mmol/L (10.00-18.00); BUN/Creat Ratio 41.6 Ratio (12.00-20.00); Blood Urea Nitrogen 59.9 mg/dL (9.0-27.0); Calcium 9.7 mg/dL (8.7-10.3); Carbon Dioxide 24.2 mmol/L (20.0-27.5); Non-African American GFR(CKD) 43.4 (60.0-200.0); Potassium 4.2 mmol/L (3.5-5.5)
[2022-01-04] MEDS: diphenhydrAMINE 50 MG/ML 1 ML VIAL IVP SCH ×2 (09:20→18:13)
[2022-01-04] MEDS: methylPREDNISolone SOD SUCCI 125 MG/2 ML VIAL IV SCH ×2 (09:21→18:13)
[2022-01-04] MEDS: carBAMazepine 200 MG TAB PO SCH ×2 (09:21→21:17)
[2022-01-04] MEDS: FAMOTIDINE 20 MG/2 ML VIAL IV SCH (09:21)
[2022-01-04] MEDS: HEPARIN SODIUM,PORCINE/PF 5,000 UNIT/0.5 ML SYRINGE SQ SCH ×2 (09:22→18:13)
[2022-01-04] MEDS: METOPROLOL TARTRATE 25 MG TAB PO SCH ×2 (09:22→21:17)
[2022-01-04 12:26] LABS: Basophils # (A) 0.03 X 10*3/uL (0.00-0.10); Basophils % (A) 0.3 %; Eosinophils % (A) 2.2 %; Immature Grans, Automated 0.3 %; Lymphocytes # (A) 0.81 X 10*3/uL (0.90-5.00); Lymphocytes % (A) 8.8 %; Monocytes # (A) 0.33 X 10*3/uL (0.20-1.00); Monocytes % (A) 3.6 %; Neutrophils # (A) 7.76 X 10*3/uL (1.80-7.70); Neutrophils % (A) 84.8 %
[2022-01-04] MEDS ORDERED: guaiFENesin SYRUP 100MG/5ML 200 MG/10 ML CUP PO PRN (12:53)
--- NOTE | 2022-01-04 14:19 | P.CNPUL ---
History of Present Illness Consult date: 01/04/22 Reason for consult: dyspnea, cough Chief complaint: Diffuse rash History of present illness: Patient is a 86-year-old male well-known to me as being one of my office patient. Agent has a long-standing history of hypersensitivity pneumonitis and pulmonary fibrosis related to that patient eventually recovered completely about 5 years ago has been on oxygen off and on eventually oxygen saturation daytime has been good decided not to use oxygen. In the last 3 months patient has been having dry nonproductive cough later on have some productive cough and intermittent low-grade fever of bronchoscopy was done positive for her M catarrhalis, patient was treated with Bactrim followed by Augmentin as an ALLERGIC reaction to Bactrim occurred at the end of therapy, fever breakdown and appetite improved patient was doing well. Patient however started having intermittent low-grade fever once a day but at the same time was nauseous as well patient was prescribed Augmentin this time has a severe ALLERGY reaction and brought into the hospital. Has some evidence of confusion as well, EKG sinus tachycardia chest x-ray chronic emphysematous changes without any evidence of focal airspace consolidation, brain computed tomography scan noted to have cerebral atrophy and no acute intracranial changes identified. Patient has been on steroids patient is swelling significantly improved however rash persists but appears to be less symptomatic with absence of pruritus. His labs are significant for white cell count 9.1, hemoglobin and hematocrit 10/33, sodium 1:30 and temperature 4.2 BUN and creatinine of 59/1.4 which is down from 65/1.68 patient is being continued on Benadryl and H2 audie as well as IV steroids and gently being hydrated Review of Systems All systems: negative Past Medical History Past Medical History: Coronary Artery Disease (CAD), Eye Disorder, Hyperlipidemia, Hypertension, Osteoarthritis (OA), Respiratory Disorder, Vascular Disorder Additional Past Medical History / Comment(s): PT states his physician discontinued his HTN medications, pulmonary fibrosis, murmur, neuropathy bilateral feet, diverticular disease/benign polyps, poor circulation L leg, arthritis bilateral knees/hands/neck, chronic cercical pain, bilateral beginnings of macular degeneration History of Any Multi-Drug Resistant Organisms: None Reported Past Surgical History: Coronary Bypass/CABG, Heart Catheterization, Hernia Repair, Orthopedic Surgery Additional Past Surgical History / Comment(s): 2007 CABG 1 vessel, bilateral feet corrective surgery, R inguinal hernia repair, colonoscopy/benign polypectomy Past Anesthesia/Blood Transfusion Reactions: No Reported Reaction Additional Past Anesthesia/Blood Transfusion Reaction / Comment(s): Pt unsure if he received blood with CABG surgery Past Psychological History: No Psychological Hx Reported Smoking Status: Former smoker Past Alcohol Use History: None Reported Past Drug Use History: None Reported - Past Family History Mother Family Medical History: Cancer, Diabetes Mellitus Brother(s) Family Medical History: Cancer, Diabetes Mellitus, Myocardial Infarction ([place]) Additional Family Medical History / Comment(s): Brother had several MIs. He is . Father Family Medical History: Myocardial Infarction ([place]) Additional Family Medical History / Comment(s): father of a [place] at the age of 63 yrs. Sister(s) Family Medical History: Myocardial Infarction ([place]) Medications and Allergies Home Medications Medication Instructions Recorded Confirmed Type Aspirin 81 mg PO HS 11/28/13 01/02/22 History Atorvastatin [Lipitor] 20 mg PO HS 09/22/16 01/02/22 History Vit C/E/Zn/Coppr/Lutein/Zeaxan 1 cap PO BID 09/22/16 01/02/22 History [Preservision Areds 2 Softgel] Acetaminophen/Diphenhydramine 1 tab PO HS 01/02/22 01/02/22 History [Tylenol PM 500-25mg] Amoxic-Pot Clav 500-125 mg 1 tab PO BID 01/02/22 01/02/22 History [Augmentin 500-125 mg] Cholecalciferol [Vitamin D3 (25 25 mcg PO DAILY 01/02/22 01/02/22 History Mcg = 1000 Iu)] Metoprolol Tartrate [Lopressor] 25 mg PO BID 01/02/22 01/02/22 History carBAMazepine [TEGretol] 100 mg PO BID 01/02/22 01/02/22 History Allergies Allergy/AdvReac Type Severity Reaction Status Date / Time Penicillins Allergy Severe Rash/Hives Verified 01/04/22 12:28 codeine Allergy Rash/Hives Verified 01/02/22 18:42 Sulfa (Sulfonamide Allergy Unknown Verified 01/02/22 18:42 Antibiotics) Physical Exam Vitals: Vital Signs Temp Pulse Resp BP BP Pulse Ox 01/04/22 07:00 97.6 F 69 18 156/67 95 01/04/22 00:37 97.8 F 66 19 144/55 99 11/07/22 20:56 98.3 F 77 19 138/79 95 01/03/22 15:00 98 F 74 16 117/64 92 L Intake and Output 01/03/22 01/04/22 01/04/22 22:59 06:59 14:59 Intake Total 240 296 Balance 240 296 Intake: Oral 240 296 Other: Voiding Method Toilet # Voids 2 4 # Bowel Movements 2 - Constitutional General appearance: average body habitus, cooperative, disheveled, mild distress - EENT Eyes: EOMI, PERRLA ENT: normal oropharynx Ears: bilateral: normal - Neck Neck: normal ROM Carotids: bilateral: upstroke normal Thyroid: bilateral: normal size - Respiratory Respiratory: bilateral: rales (Basal dry Rales) - Cardiovascular Rhythm: regular Heart sounds: normal: S1, S2 - Gastrointestinal General gastrointestinal: normal bowel sounds, soft - Integumentary Diffuse rash with target lesions in the trunk as well as lower extremity, diffuse erythematous rash on the face - Neurologic Neurologic: CNII-XII intact - Musculoskeletal Musculoskeletal: gait normal, generalized weakness, strength equal bilaterally - Psychiatric Psychiatric: A&O x's 3, appropriate affect, intact judgment & insight Results - Laboratory Findings CBC and BMP: 01/04/22 05:59 01/04/22 05:59 Abnormal lab findings: Abnormal Labs 01/02/22 01/02/22 01/02/22 18:55 18:55 19:55 RBC 3.46 L Hgb 11.0 L Hct 30.0 L MCHC Plt Count 112 L Neutrophils # Lymphocytes # 0.8 L Sodium 136 L Chloride Carbon Dioxide 21 L Anion Gap BUN 65 H Creatinine 1.68 H Est GFR (CKD-EPI)AfAm Est GFR (CKD-EPI)NonAf BUN/Creatinine Ratio Glucose 127 H ALT 63 H C-Reactive Protein Albumin 3.0 L Procalcitonin Urine Protein 1+ H Urine Ketones 1+ H Ur Leukocyte Esterase Small H Urine Mucus Rare H 01/03/22 01/03/22 01/03/22 11:19 11:19 11:19 RBC 3.44 L Hgb 10.4 L Hct 30.8 L MCHC Plt Count 138 L Neutrophils # Lymphocytes # 0.5 L Sodium Chloride 109 H Carbon Dioxide Anion Gap BUN 59 H Creatinine 1.52 H Est GFR (CKD-EPI)AfAm Est GFR (CKD-EPI)NonAf BUN/Creatinine Ratio Glucose 183 H ALT C-Reactive Protein 5.6 H Albumin Procalcitonin 4.20 H Urine Protein Urine Ketones Ur Leukocyte Esterase Urine Mucus 01/04/22 01/04/22 05:59 05:59 RBC 3.68 L Hgb 10.4 L Hct 33.2 L MCHC 31.3 L Plt Count Neutrophils # 7.76 H Lymphocytes # 0.81 L Sodium Chloride Carbon Dioxide Anion Gap 7.30 L BUN 59.9 H Creatinine Est GFR (CKD-EPI)AfAm 50.3 L Est GFR (CKD-EPI)NonAf 43.4 L BUN/Creatinine Ratio 41.60 H Glucose 130 H ALT C-Reactive Protein Albumin Procalcitonin Urine Protein Urine Ketones Ur Leukocyte Esterase Urine Mucus - Diagnostic Findings Chest x-ray: report reviewed, image reviewed (Finding as noted above) Assessment and Plan Assessment: 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 ID Dr. Wood following Hypersensitivity pneumonitis by history Pulmonary fibrosis Plan: Agree with IV hydration, steroids, [id number], Will obtain computed tomography scan of the chest without contrast Further plan of care as per clinical response of the patient Time with Patient: Greater than 30
--- NOTE | 2022-01-04 17:46 | CT ---
EXAMINATION TYPE: CT chest wo con DATE OF EXAM: 01/04/2022 COMPARISON: 10/17/2017 HISTORY: Pulmonary fibrosis CT DLP: 796 mGycm Automated exposure control for dose reduction was used. Images obtained from the thoracic inlet to the diaphragm with no contrast. There are small bilateral pleural effusions. Heart size is within normal limits. There is dense coron breonna artery calcification. Thoracic aorta is atheromatous. No aneurysm. There are multiple enlarged me diastinal and bronchial lymph nodes up to 2 cm. There are bilateral enlarged axillary lymph nodes. Th ere is some coarsening of the pulmonary interstitial markings in the mid and lower lung silver. The thoracic spine shows hypertrophic degenerative spur formation. No compression fracture. There are sternal wires. IMPRESSION: There is mediastinal and bronchial adenopathy. Axillary adenopathy. Adenopathy appears new compared t o old exam. Small pleural effusions are new compared to old exam. Mild patchy pulmonary interstitial infiltrates and subsegmental atelectasis. Lung disease not significantly different than last exam. Fo llow-up is recommended. Lymphoma is possible.
[2022-01-04] MEDS: SODIUM CHLORIDE 0.9% 1,000 ML IV SCH (18:14)
[2022-01-04] MEDS: QUEtiapine 25 MG TAB PO PRN (21:17)
[2022-01-04] MEDS: ATORVASTATIN 20 MG TAB PO SCH (21:18)
[2022-01-04] MEDS: ASPIRIN 81 MG PO SCH (21:18)
[2022-01-05] MEDS: HEPARIN SODIUM,PORCINE/PF 5,000 UNIT/0.5 ML SYRINGE SQ SCH ×3 (00:17→15:33)
[2022-01-05] MEDS: diphenhydrAMINE 50 MG/ML 1 ML VIAL IVP SCH ×2 (01:09→08:04)
[2022-01-05] MEDS: methylPREDNISolone SOD SUCCI 125 MG/2 ML VIAL IV SCH ×2 (01:09→08:04)
[2022-01-05] MEDS: SODIUM CHLORIDE 0.9% 1,000 ML IV SCH ×2 (01:13→15:12)
[2022-01-05] MEDS: carBAMazepine 200 MG TAB PO SCH ×2 (08:04→20:39)
[2022-01-05] MEDS: METOPROLOL TARTRATE 25 MG TAB PO SCH ×2 (08:04→20:39)
[2022-01-05] MEDS: FAMOTIDINE 20 MG/2 ML VIAL IV SCH (08:04)
[2022-01-05 08:42] LABS: HCT 32.5 % (39.6-50.0); HGB 10.6 g/dL (13.0-17.0); MCH 29.1 pg (27.0-32.0); MCHC 32.6 g/dL (32.0-37.0); MCV 89.3 fL (80.0-97.0); Mean Platelet Volume 12.1 fL (9.5-12.2); NRBC Per 100 WBC 0 /100 WBCS (0.0-0.0); Platelet Count 168 X 10*3/uL (140-440); RBC 3.64 X 10*6/uL (4.40-5.60); RDW 14.2 % (11.5-14.5); WBC 7.97 X 10*3/uL (4.50-10.00)
--- NOTE | 2022-01-05 09:56 | P.PN ---
Subjective Progress Note Date: 01/04/22 Patient is a 86-year-old male with a known history of interstitial pulmonary fibrosis, coronary artery disease history of CABG, hypertension, osteoarthritis and hyperlipidemia and peripheral vascular disease and prior history of smoking presents to ER for possible allergic reaction. Patient states that he has been having on and off pneumonia and was given antibiotics in the form of Augmentin which he has been taking for the past 1 to 2 days. Today family noticed that he has been having rash all over his body mainly in the face chest and arms. He was also found to have lip swelling and felt too weak to get up from his chair. EMS found the patient to be hypotensive and systolic blood pressure was in 80s. He was given IV Solu-Medrol and IV fluids and epinephrine and transported to ER. Patient seems to be more awake and alert now but is a poor historian. Hard of hearing as well. Patient did take Augmentin course previously without any reaction. Denies any fever or chills. No chest pain. No nausea vomiting abdominal pain or diarrhea. Denies any recent illnesses. Patient follows with pulmonary as an outpatient. On admission EKG showed sinus tachycardia Chest x-ray showed chronic emphysematous changes without evidence of focal airspace consolidation. Urinalysis is negative for infection. Laboratory data showed WBC 9.6 hemoglobin 11.0 and platelets 112 Sodium 136 potassium 4.0 chloride 107 bicarb is 21 BUN 65 creatinine 1.68 and blood sugar is 127 AST 39 ALT 63 alk phos 120 troponin (x1 negative and albumin 3.0. 01/04/2022 Patient is lying in the bed. Awake alert but seems to be slightly confused. CT head showed no acute Also hard of hearing. Currently on room air. Patient is still having rash especially on the chest and back.. He is being continued on IV Solu-Medrol Benadryl and Pepcid. Patient has been afebrile. No nausea vomiting or diarrhea. Laboratory data showed WBC 9.1 10.4 and platelets 162, sodium 139 potassium 4.2 BUN. 59.9 point and creatinine 1.4 ID and pulmonary is on board., Pro-calcitonin was 4.2. Current medications reviewed. Objective - Vital Signs Vital signs: Vital Signs Temp 97.4 F L 01/04/22 19:45 Pulse 72 01/04/22 19:45 Resp 12 01/04/22 19:45 BP 154/75 01/04/22 19:45 Pulse Ox 97 01/04/22 19:45 FiO2 Intake & Output 01/04/22 01/04/22 01/05/22 06:59 18:59 06:59 Intake Total 296 Balance 296 Intake: Oral 296 Other: Voiding Method Toilet # Voids 4 2 - Exam PHYSICAL EXAMINATION: Patient is lying in the bed comfortably, no acute distress, awake alert and orie nted. Drowsy, confused. Hard of hearing.. HEENT: Normocephalic. Neck is supple. Pupils reactive. Nostrils clear. Oral cavity is moist. Neck reveals no JVD, carotid bruits, or thyromegaly. CHEST EXAMINATION: Trachea is central. Symmetrical expansion. Lung silver clear to auscultation and percussion. CARDIAC: Normal S1, S2 with no gallops. Systolic murmur present. ABDOMEN: Soft. Bowel sounds present. Nontender. No organomegaly. No abdominal bruits. Extremities: reveal no edema. No clubbing or cyanosis Neurologically awake, alert, oriented x3 with well-coordinated movements. No focal deficits noted Skin: Patient does have macular rash all over body.. Psychiatric: Coperative. Could not be assessed completely., Musculoskeletal: No joint swelling or deformity. Normal range of motion. - Labs CBC & Chem 7: 01/05/22 05:46 01/04/22 05:59 Labs: Abnormal Lab Results - Last 24 Hours (Table) 01/04/22 01/04/22 Range/Units 05:59 05:59 RBC 3.68 L (4.40-5.60) X 10*6/uL Hgb 10.4 L (13.0-17.0) g/dL Hct 33.2 L (39.6-50.0) % MCHC 31.3 L (32.0-37.0) g/dL Neutrophils # 7.76 H (1.80-7.70) X 10*3/uL Lymphocytes # 0.81 L (0.90-5.00) X 10*3/uL Anion Gap 7.30 L (10.00-18.00) mmol/L BUN 59.9 H (9.0-27.0) mg/dL Est GFR (CKD-EPI)AfAm 50.3 L (60.0-200.0) Est GFR (CKD-EPI)NonAf 43.4 L (60.0-200.0) BUN/Creatinine Ratio 41.60 H (12.00-20.00) Ratio Glucose 130 H (70-110) mg/dL Assessment and Plan Assessment: Acute allergic reaction/generalized macular rash. Suspected to be due to Augmentin. Hypotension and tachycardia on admission. Improved now. Possible interstitial pneumonia versus underlying interstitial lung disease changes. Interstitial pulmonary fibrosis Coronary arteries history of CABG Hypertension Osteoarthritis Peripheral vascular disease Bilateral peripheral neuropathy nondiabetic Macular degeneration Previous history of smoking DVT prophylaxis Heparin subcu Plan: Patient was given a dose of IV Solu-Medrol and continue with IV Solu-Medrol 60 mg every 8 hourly and Benadryl and Zantac. Continue the IV hydration.. CT chest was ordered. Pulmonary and ID is on board. Continue with symptomatic management and follow closely. Discussed with family at bedside in detail. Prognosis guarded at this time. Time with Patient: Greater than 30
[2022-01-05 11:30] LABS: African American GFR (CKD) 41.1 (60.0-200.0); Anion Gap 9.2 mmol/L (10.00-18.00); BUN/Creat Ratio 37.76 Ratio (12.00-20.00); Blood Urea Nitrogen 64.2 mg/dL (9.0-27.0); Calcium 9.7 mg/dL (8.7-10.3); Carbon Dioxide 22.8 mmol/L (20.0-27.5); Non-African American GFR(CKD) 35.5 (60.0-200.0); Potassium 4.3 mmol/L (3.5-5.5)
[2022-01-05 11:31] LABS: Basophils # (A) 0.02 X 10*3/uL (0.00-0.10); Basophils % (A) 0.3 %; Eosinophils # (A) 0.16 X 10*3/uL (0.04-0.35); Immature Grans, Automated 0.8 %; Lymphocytes # (A) 0.95 X 10*3/uL (0.90-5.00); Lymphocytes % (A) 11.9 %; Monocytes # (A) 0.33 X 10*3/uL (0.20-1.00); Monocytes % (A) 4.1 %; Neutrophils # (A) 6.45 X 10*3/uL (1.80-7.70); Neutrophils % (A) 80.9 %
[2022-01-05] MEDS ORDERED: diphenhydrAMINE 50 MG/ML 1 ML VIAL IVP PRN (14:42)
--- NOTE | 2022-01-05 16:09 | P.CONS ---
History of Present Illness - Reason for Consult Consult date: 01/05/22 mediastinal LAD Requesting physician: Bhumi Dillard - Chief Complaint rash - History of Present Illness Mister Wen is a pleasant 86-year-old man with a past medical history of pulmonary fibrosis, CAD, CABG, HTN, OA, PVD and hyperlipidemia who came to the emergency department because of a rash after starting Augmentin for pneumonia. The rash started with then 24-48 hours of starting the Augmentin. This was associated with some weakness, diarrhea the day before admission. He denied fever oral irritation, painful swallowing, difficulty swallowing, unusual shortness of breath, chest pain or tightness, abdominal pain or cramping, dysuria, hematuria, swelling in the legs. No bleeding to report. The rash is pruritic, not painful. He has been started on steroids, Benadryl and Pepcid for allergic reaction. He states that the rash is stable today. Patient had imaging of the chest, this revealed some lymphadenopathy in the mediastinum as well as the axilla. Patient states that every now and again he might feel a "lump" in his axillary areas, nothing persistent or progressive. Patient denies a personal history of cancer. No significant constitutional sym ptoms. CBC within normal limits other than mild normocytic anemia, mild kidney disease noted. Review of Systems 10 point ROS is as stated in HPI Past Medical History Past Medical History: Coronary Artery Disease (CAD), Eye Disorder, Hyperlipidemia, Hypertension, Osteoarthritis (OA), Respiratory Disorder, Vascular Disorder Additional Past Medical History / Comment(s): PT states his physician disconti nued his HTN medications, pulmonary fibrosis, murmur, neuropathy bilateral feet, diverticular disease/benign polyps, poor circulation L leg, arthritis bilateral knees/hands/neck, chronic cercical pain, bilateral beginnings of macular degeneration History of Any Multi-Drug Resistant Organisms: None Reported Past Surgical History: Coronary Bypass/CABG, Heart Catheterization, Hernia Repair, Orthopedic Surgery Additional Past Surgical History / Comment(s): 2007 CABG 1 vessel, bilateral feet corrective surgery, R inguinal hernia repair, colonoscopy/benign polypectomy Past Anesthesia/Blood Transfusion Reactions: No Reported Reaction Additional Past Anesthesia/Blood Transfusion Reaction / Comm: Pt unsure if he received blood with CABG surgery Past Psychological History: No Psychological Hx Reported Smoking Status: Former smoker Past Alcohol Use History: None Reported Past Drug Use History: None Reported - Past Family History Mother Family Medical History: Cancer, Diabetes Mellitus Brother(s) Family Medical History: Cancer, Diabetes Mellitus, Myocardial Infarction ([place]) Additional Family Medical History / Comment(s): Brother had several MIs. He is . Father Family Medical History: Myocardial Infarction ([place]) Additional Family Medical History / Comment(s): father of a MN at the age of 63 yrs. Sister(s) Family Medical History: Myocardial Infarction ([place]) Medications and Allergies Home Medications Medication Instructions Recorded Confirmed Type Aspirin 81 mg PO HS 11/28/13 01/02/22 History Atorvastatin [Lipitor] 20 mg PO HS 09/22/16 01/02/22 History Vit C/E/Zn/Coppr/Lutein/Zeaxan 1 cap PO BID 09/22/16 01/02/22 History [Preservision Areds 2 Softgel] Acetaminophen/Diphenhydramine 1 tab PO HS 01/02/22 01/02/22 History [Tylenol PM 500-25mg] Amoxic-Pot Clav 500-125 mg 1 tab PO BID 01/02/22 01/02/22 History [Augmentin 500-125 mg] Cholecalciferol [Vitamin D3 (25 25 mcg PO DAILY 01/02/22 01/02/22 History Mcg = 1000 Iu)] Metoprolol Tartrate [Lopressor] 25 mg PO BID 01/02/22 01/02/22 History carBAMazepine [TEGretol] 100 mg PO BID 01/02/22 01/02/22 History Allergies Allergy/AdvReac Type Severity Reaction Status Date / Time Penicillins Allergy Severe Rash/Hives Verified 01/04/22 12:28 codeine Allergy Rash/Hives Verified 01/02/22 18:42 Sulfa (Sulfonamide Allergy Unknown Verified 01/02/22 18:42 Antibiotics) Physical Exam Vitals: Vital Signs Temp Pulse Resp BP BP BP Pulse Ox 01/05/22 07:00 97.8 F 67 18 150/60 98 01/05/22 03:24 96.6 F L 72 16 160/69 94 L 01/04/22 19:45 97.4 F L 72 12 154/75 97 01/04/22 14:27 97.7 F 62 17 150/60 100 Intake and Output 01/04/22 01/05/22 01/05/22 22:59 06:59 14:59 Other: Voiding Method Toilet Toilet # Voids 2 3 - Constitutional General appearance: average body habitus, cooperative, no acute distress - EENT Eyes: anicteric sclerae, EOMI ENT: hearing grossly normal, normal oropharynx - Neck Neck: no lymphadenopathy - Respiratory Respiratory: bilateral: CTA - Cardiovascular Rhythm: regular Heart sounds: normal: S1, S2 Abnormal Heart Sounds: systolic murmur, no diastolic murmur, no rub, no S3 Gallop, no S4 Gallop, no click, no other - Gastrointestinal General gastrointestinal: no absent bowel sounds, no decreased bowel sounds, no distended, no hepatomegaly, no hyperactive bowel sounds, normal bowel sounds, no organomegaly, no rigid, no scaphoid, soft, no splenomegaly, no tenderness, no umbilical hernia, no ventral hernia - Genitourinary no inguinal LAD - Integumentary Integumentary: rash - Neurologic Neurologic: CNII-XII intact (grossly) - Musculoskeletal Musculoskeletal: strength equal bilaterally - Psychiatric Psychiatric: A&O x's 3, appropriate affect Results CBC & Chem 7: 01/05/22 05:46 01/05/22 05:46 Labs: Abnormal Lab Results - Last 24 Hours (Table) 01/05/22 01/05/22 Range/Units 05:46 05:46 RBC 3.64 L (4.40-5.60) X 10*6/uL Hgb 10.6 L (13.0-17.0) g/dL Hct 32.5 L (39.6-50.0) % Immature Gran # 0.06 H (0.00-0.04) X 10*3/uL Anion Gap 9.20 L (10.00-18.00) mmol/L BUN 64.2 H (9.0-27.0) mg/dL Creatinine 1.7 H (0.6-1.5) mg/dL Est GFR (CKD-EPI)AfAm 41.1 L (60.0-200.0) Est GFR (CKD-EPI)NonAf 35.5 L (60.0-200.0) BUN/Creatinine Ratio 37.76 H (12.00-20.00) Ratio Glucose 135 H (70-110) mg/dL Chest x-ray: report reviewed CT scan - chest: report reviewed CT Scan - head: report reviewed Assessment and Plan (1) Allergic reaction to drug Current Visit: Yes Status: Acute Priority: High Code(s): T78.40XA - ALLERGY, UNSPECIFIED, INITIAL ENCOUNTER SNOMED Code(s): 978473063 (2) Mediastinal lymphadenopathy Current Visit: Yes Status: Acute Code(s): R59.0 - LOCALIZED ENLARGED LYMPH NODES SNOMED Code(s): 34324781 Plan: Reaction to antibiotic, severe rash. Patient is currently on Benadryl, steroids and Pepcid. Patient denies any anaphylactic-type symptoms. CT of the chest without contrast showing mediastinal and bronchial adenopathy, axillary adenopathy. This can appears new compared to previous exam 10/17/17, as well as small pleural effusions bilaterally. Not certain if this is a reactive process to patient's antibiotic allergy. Labs reviewed, mild, normocytic anemia, mild kidney disease. LDH and flow cytometry ordered to begin LAD workup. Will continue to follow with patient. Additional studies as needed. attests: I have seen and examined pt, performed H&P, developed impression and plan of care. Discussed with dictator. Agree with documentation, dictated as a scribe.
[2022-01-05] MEDS: ATORVASTATIN 20 MG TAB PO SCH (20:39)
[2022-01-05] MEDS: methylPREDNISolone SOD SUCCI 40 MG/ML 1 ML VIAL IV SCH (20:39)
[2022-01-05] MEDS: ASPIRIN 81 MG PO SCH (20:39)
[2022-01-05] MEDS: QUEtiapine 25 MG TAB PO PRN (20:40)
[2022-01-06] MEDS: HEPARIN SODIUM,PORCINE/PF 5,000 UNIT/0.5 ML SYRINGE SQ SCH ×4 (01:04→23:38)
[2022-01-06] MEDS: SODIUM CHLORIDE 0.9% 1,000 ML IV SCH ×2 (06:54→21:07)
[2022-01-06 08:53] LABS: HCT 32.3 % (39.6-50.0); HGB 10.6 g/dL (13.0-17.0); MCH 28.7 pg (27.0-32.0); MCHC 32.8 g/dL (32.0-37.0); MCV 87.5 fL (80.0-97.0); Mean Platelet Volume 11.2 fL (9.5-12.2); NRBC Per 100 WBC 0 /100 WBCS (0.0-0.0); Platelet Count 193 X 10*3/uL (140-440); RBC 3.69 X 10*6/uL (4.40-5.60); RDW 14.4 % (11.5-14.5); WBC 8.88 X 10*3/uL (4.50-10.00)
[2022-01-06 09:19] LABS: African American GFR (CKD) 47.8 (60.0-200.0); Anion Gap 5.9 mmol/L (10.00-18.00); BUN/Creat Ratio 37.13 Ratio (12.00-20.00); Blood Urea Nitrogen 55.7 mg/dL (9.0-27.0); Calcium 9.3 mg/dL (8.7-10.3); Carbon Dioxide 24.1 mmol/L (20.0-27.5); Non-African American GFR(CKD) 41.3 (60.0-200.0); Potassium 4.4 mmol/L (3.5-5.5)
--- NOTE | 2022-01-06 09:33 | P.PN ---
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 Fever of unknown region has improved significantly with treatment however reoccurred Mediastinal and bronchial and axillary lymphadenopathy Hypersensitivity pneumonitis by history Pulmonary fibrosis 01/05/2022, patient seen eval reexamined during the rounds labs reviewed medications reviewed computed tomography scan reviewed as well, fever Petrin has improved, current temperature is 97.8, blood pressure is 155/72 saturations 96%, diffuse target lesion on the skin and rash is present but comparatively fading, lip swelling Swelling in the Improved Significantly Patient Able to Swallow, 2 Daughters Are Present at Bedside, Reviewed Computed Tomography Scan Finding of Mediastinal and Bronchial Adenopathy Patient is a 86-year-old male well-known to me as being one of my office patient. Agent has a long-standing history of hypersensitivity pneumonitis and pulmonary fibrosis related to that patient eventually recovered completely about 5 years ago has been on oxygen off and on eventually oxygen saturation daytime has been good decided not to use oxygen. In the last 3 months patient has been having dry nonproductive cough later on have some productive cough and intermittent low-grade fever of bronchoscopy was done positive for her M catarrhalis, patient was treated with Bactrim followed by Augmentin as an ALLERGIC reaction to Bactrim occurred at the end of therapy, fever breakdown and appetite improved patient was doing well. Patient however started having intermittent low-grade fever once a day but at the same time was nauseous as well patient was prescribed Augmentin this time has a severe ALLERGY reaction and brought into the hospital. Has some evidence of confusion as well, EKG sinus tachycardia chest x-ray chronic emphysematous changes without any evidence of focal airspace consolidation, brain computed tomography scan noted to have cerebral atrophy and no acute intracranial changes identified. Patient has been on steroids patient is swelling significantly improved however rash persists but appears to be less symptomatic with absence of pruritus. His labs are significant for white cell count 9.1, hemoglobin and hematocrit 10/33, sodium 1:30 and temperature 4.2 BUN and creatinine of 59/1.4 which is down from 65/1.68 patient is being continued on Benadryl and H2 audie as well as IV steroids and gently being hydrated Objective - Vital Signs Vital signs: Vital Signs Temp 97.8 F 01/05/22 15:00 Pulse 104 H 01/05/22 15:00 Resp 18 01/05/22 15:00 BP 155/72 01/05/22 15:00 Pulse Ox 96 01/05/22 15:00 FiO2 Intake & Output 01/04/22 01/05/22 01/05/22 18:59 06:59 18:59 Intake Total 296 360 Balance 296 360 Intake: Oral 296 360 Other: Voiding Method Toilet Toilet # Voids 2 3 1 - Exam - Constitutional General appearance: average body habitus, cooperative, disheveled, mild distress - EENT Eyes: EOMI, PERRLA ENT: normal oropharynx Ears: bilateral: normal - Neck Neck: normal ROM Carotids: bilateral: upstroke normal Thyroid: bilateral: normal size - Respiratory Respiratory: bilateral: rales (Basal dry Rales) - Cardiovascular Rhythm: regular Heart sounds: normal: S1, S2 - Gastrointestinal General gastrointestinal: normal bowel sounds, soft - Integumentary Diffuse rash with target lesions in the trunk as well as lower extremity, diffuse erythematous rash on the face - Neurologic Neurologic: CNII-XII intact - Musculoskeletal Musculoskeletal: gait normal, generalized weakness, strength equal bilaterally - Psychiatric Psychiatric: A&O x's 3, appropriate affect, intact judgment & insight - Labs CBC & Chem 7: 01/06/22 05:23 01/06/22 05:23 Labs: Abnormal Lab Results - Last 24 Hours (Table) 01/05/22 01/05/22 Range/Units 05:46 05:46 RBC 3.64 L (4.40-5.60) X 10*6/uL Hgb 10.6 L (13.0-17.0) g/dL Hct 32.5 L (39.6-50.0) % Immature Gran # 0.06 H (0.00-0.04) X 10*3/uL Anion Gap 9.20 L (10.00-18.00) mmol/L BUN 64.2 H (9.0-27.0) mg/dL Creatinine 1.7 H (0.6-1.5) mg/dL Est GFR (CKD-EPI)AfAm 41.1 L (60.0-200.0) Est GFR (CKD-EPI)NonAf 35.5 L (60.0-200.0) BUN/Creatinine Ratio 37.76 H (12.00-20.00) Ratio Glucose 135 H (70-110) mg/dL Assessment and Plan Assessment: 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 Fever of unknown origin Mediastinal and bronchial hilar lymphadenopathy along with axillary lymphadenopathy of unclear etiology not seen and computed tomography scan 2018 Hypersensitivity pneumonitis by history Pulmonary fibrosis Plan: Agree with IV hydration, steroids, [id number], Reviewed computed tomography scan of the chest without contrast, also discussed finding with the 2 daughters and patient Patient will need repeat computed tomography scan with IV dye once clinically improved to assess lymphadenopathy Further plan of care as per clinical response of the patient Time with Patient: Greater than 30
--- NOTE | 2022-01-06 09:37 | P.PN ---
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 Fever of unknown region has improved significantly with treatment however reoccurred Mediastinal and bronchial and axillary lymphadenopathy Hypersensitivity pneumonitis by history Pulmonary fibrosis 01/06/2022, patient seen eval reexamined during the rounds sitting upright on the bed eating breakfast, patient has been room air oxygen saturation is stable, still have intermittent cough which is dry and nonproductive, denies any chest pain, patient remains afebrile, and labs from today reviewed white cell count is 8.8, hemoglobin stable 10.6, chemistry reviewed BUN/creatinine is 55/1.5 overall stable. The rash on the face is more homogenous and again slowly fading comparatively on the trunk and extremities which is in the form of target lesions is nonpruritic and also slowly fading, patient remains on IV steroids gentle rehydration S2 blockers along with Benadryl. Noted that oncology is evaluating the patient will discuss with them as well 01/05/2022, patient seen eval reexamined during the rounds labs reviewed medications reviewed computed tomography scan reviewed as well, fever Petrin has improved, current temperature is 97.8, blood pressure is 155/72 saturations 96%, diffuse target lesion on the skin and rash is present but comparatively fading, lip swelling Swelling in the Improved Significantly Patient Able to Swallow, 2 Daughters Are Present at Bedside, Reviewed Computed Tomography Scan Finding of Mediastinal and Bronchial Adenopathy Patient is a 86-year-old male well-known to me as being one of my office patient. Agent has a long-standing history of hypersensitivity pneumonitis and pulmonary fibrosis related to that patient eventually recovered completely about 5 years ago has been on oxygen off and on eventually oxygen saturation daytime has been good decided not to use oxygen. In the last 3 months patient has been having dry nonproductive cough later on have some productive cough and intermittent low-grade fever of bronchoscopy was done positive for her M catarrhalis, patient was treated with Bactrim followed by Augmentin as an ALLERGIC reaction to Bactrim occurred at the end of therapy, fever breakdown and appetite improved patient was doing well. Patient however started having intermittent low-grade fever once a day but at the same time was nauseous as well patient was prescribed Augmentin this time has a severe ALLERGY reaction and brought into the hospital. Has some evidence of confusion as well, EKG sinus tachycardia chest x-ray chronic emphysematous changes without any evidence of focal airspace consolidation, brain computed tomography scan noted to have cerebral atrophy and no acute intracranial changes identified. Patient has been on steroids patient is swelling significantly improved however rash persists but appears to be less symptomatic with absence of pruritus. His labs are significant for white cell count 9.1, hemoglobin and hematocrit 10/33, sodium 1:30 and temperature 4.2 BUN and creatinine of 59/1.4 which is down from 65/1.68 patient is being continued on Benadryl and H2 audie as well as IV steroids and gently being hydrated Objective - Vital Signs Vital signs: Vital Signs Temp 97.8 F 01/06/22 02:08 Pulse 65 01/06/22 02:08 Resp 16 01/06/22 02:08 BP 166/53 01/06/22 02:08 Pulse Ox 99 01/06/22 02:08 FiO2 Intake & Output 01/05/22 01/06/22 01/06/22 18:59 06:59 18:59 Intake Total 360 Balance 360 Intake: Oral 360 Other: Voiding Method Toilet Toilet # Voids 1 3 - Exam - Constitutional General appearance: average body habitus, cooperative, disheveled, mild distress - EENT Eyes: EOMI, PERRLA ENT: normal oropharynx Ears: bilateral: normal - Neck Neck: normal ROM Carotids: bilateral: upstroke normal Thyroid: bilateral: normal size - Respiratory Respiratory: bilateral: rales (Basal dry Rales) - Cardiovascular Rhythm: regular Heart sounds: normal: S1, S2 - Gastrointestinal General gastrointestinal: normal bowel sounds, soft - Integumentary Diffuse rash with target lesions in the trunk as well as lower extremity, diffuse erythematous rash on the face - Neurologic Neurologic: CNII-XII intact - Musculoskeletal Musculoskeletal: gait normal, generalized weakness, strength equal bilaterally - Psychiatric Psychiatric: A&O x's 3, appropriate affect, intact judgment & insight - Labs CBC & Chem 7: 01/06/22 05:23 01/06/22 05:23 Labs: Abnormal Lab Results - Last 24 Hours (Table) 01/05/22 01/05/22 01/06/22 Range/Units 05:46 05:46 05:23 RBC 3.69 L (4.40-5.60) X 10*6/uL Hgb 10.6 L (13.0-17.0) g/dL Hct 32.3 L (39.6-50.0) % Immature Gran # 0.06 H (0.00-0.04) X 10*3/uL Chloride (96-109) mmol/L Anion Gap 9.20 L (10.00-18.00) mmol/L BUN 64.2 H (9.0-27.0) mg/dL Creatinine 1.7 H (0.6-1.5) mg/dL Est GFR (CKD-EPI)AfAm 41.1 L (60.0-200.0) Est GFR (CKD-EPI)NonAf 35.5 L (60.0-200.0) BUN/Creatinine Ratio 37.76 H (12.00-20.00) Ratio Glucose 135 H (70-110) mg/dL 01/06/22 Range/Units 05:23 RBC (4.40-5.60) X 10*6/uL Hgb (13.0-17.0) g/dL Hct (39.6-50.0) % Immature Gran # (0.00-0.04) X 10*3/uL Chloride 110 H (96-109) mmol/L Anion Gap 5.90 L (10.00-18.00) mmol/L BUN 55.7 H (9.0-27.0) mg/dL Creatinine (0.6-1.5) mg/dL Est GFR (CKD-EPI)AfAm 47.8 L (60.0-200.0) Est GFR (CKD-EPI)NonAf 41.3 L (60.0-200.0) BUN/Creatinine Ratio 37.13 H (12.00-20.00) Ratio Glucose 125 H (70-110) mg/dL Assessment and Plan Assessment: 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 Fever of unknown origin Mediastinal and bronchial hilar lymphadenopathy along with axillary lymphadenopathy of unclear etiology not seen and computed tomography scan 2018, will likely require further investigation, given current situation probably best to do a computed tomography scan with IV contrast once his rash and skin lesions improved Hypersensitivity pneumonitis by history Pulmonary fibrosis Plan: Agree with IV hydration, steroids, [id number], and Benadryl Reviewed computed tomography scan of the chest without contrast, will further discuss with oncology team Patient will need repeat computed tomography scan with IV dye once clinically improved to assess lymphadenopathy Further plan of care as per clinical response of the patient Time with Patient: Greater than 30
[2022-01-06] MEDS: METOPROLOL TARTRATE 25 MG TAB PO SCH ×2 (09:47→21:04)
[2022-01-06] MEDS: FAMOTIDINE 20 MG/2 ML VIAL IV SCH (09:47)
[2022-01-06] MEDS: methylPREDNISolone SOD SUCCI 40 MG/ML 1 ML VIAL IV SCH ×2 (09:48→21:04)
[2022-01-06] MEDS: carBAMazepine 200 MG TAB PO SCH ×2 (09:59→21:04)
[2022-01-06 11:15] LABS: Basophils # (A) 0.01 X 10*3/uL (0.00-0.10); Basophils % (A) 0.1 %; Eosinophils % (A) 11.3 %; Immature Grans, Automated 1.9 %; Lymphocytes # (A) 1.11 X 10*3/uL (0.90-5.00); Lymphocytes % (A) 12.5 %; Monocytes # (A) 0.26 X 10*3/uL (0.20-1.00); Monocytes % (A) 2.9 %; Neutrophils # (A) 6.33 X 10*3/uL (1.80-7.70); Neutrophils % (A) 71.3 %
--- NOTE | 2022-01-06 18:59 | P.PN ---
Subjective Progress Note Date: 01/06/22 Principal diagnosis: Rash, mediastinal and axillary lymphadenopathy. In follow-up today patient's rash is stable, little less raised, he denies pain, mild puritis, no new symptoms to report. Objective - Vital Signs Vital signs: Vital Signs Temp 98.3 F 01/06/22 18:48 Pulse 80 01/06/22 18:48 Resp 19 01/06/22 18:48 BP 155/67 01/06/22 18:48 Pulse Ox 99 01/06/22 09:42 FiO2 Intake & Output 01/05/22 01/06/22 01/06/22 18:59 06:59 18:59 Intake Total 360 Balance 360 Intake: Oral 360 Other: Voiding Method Toilet Toilet Toilet # Voids 1 3 - Constitutional General appearance: Present: average body habitus, cooperative, no acute distress - EENT Eyes: Present: anicteric sclerae, EOMI ENT: Present: hearing grossly normal, normal oropharynx - Respiratory Details: Respirations even and unlabored - Integumentary Integumentary Comment(s): Less raised, less skin thickening, no pain with palpation, no blisters or bleeding Integumentary: Present: rash - Neurologic Neurologic: Present: CNII-XII intact - Musculoskeletal Musculoskeletal: Present: generalized weakness, strength equal bilaterally - Psychiatric Psychiatric: Present: A&O x's 3, appropriate affect, intact judgment & insight - Labs CBC & Chem 7: 01/06/22 05:23 01/06/22 05:23 Labs: Abnormal Lab Results - Last 24 Hours (Table) 01/06/22 01/06/22 Range/Units 05:23 05:23 RBC 3.69 L (4.40-5.60) X 10*6/uL Hgb 10.6 L (13.0-17.0) g/dL Hct 32.3 L (39.6-50.0) % Immature Gran # 0.17 H (0.00-0.04) X 10*3/uL Eosinophils # 1.00 H (0.04-0.35) X 10*3/uL Chloride 110 H (96-109) mmol/L Anion Gap 5.90 L (10.00-18.00) mmol/L BUN 55.7 H (9.0-27.0) mg/dL Est GFR (CKD-EPI)AfAm 47.8 L (60.0-200.0) Est GFR (CKD-EPI)NonAf 41.3 L (60.0-200.0) BUN/Creatinine Ratio 37.13 H (12.00-20.00) Ratio Glucose 125 H (70-110) mg/dL Assessment and Plan (1) Allergic reaction to drug Current Visit: Yes Status: Acute Priority: High Code(s): T78.40XA - ALLERGY, UNSPECIFIED, INITIAL ENCOUNTER SNOMED Code(s): 178534422 (2) Mediastinal lymphadenopathy Current Visit: Yes Status: Acute Code(s): R59.0 - LOCALIZED ENLARGED LYMPH NODES SNOMED Code(s): 77868976 Plan: Reaction to antibiotic, severe rash. Patient cont on Benadryl, steroids and Pepcid. CT of the chest without contrast showing mediastinal and bronchial adenopathy, axillary adenopathy. This appears new compared to previous exam 10/17/17, as well as small pleural effusions bilaterally. Not certain if this is a reactive process to patient's antibiotic allergic reaction. Labs reviewed, mild, normocytic anemia, mild kidney disease. LDH and flow cytometry ordered to begin LAD workup, still pending results. Will continue to follow with patient. Additional studies as needed.
[2022-01-06] MEDS: ASPIRIN 81 MG PO SCH (21:04)
[2022-01-06] MEDS: ATORVASTATIN 20 MG TAB PO SCH (21:04)
--- NOTE | 2022-01-06 22:59 | P.PN ---
Subjective Progress Note Date: 01/05/22 Patient is a 86-year-old male with a known history of interstitial pulmonary fibrosis, coronary artery disease history of CABG, hypertension, osteoarthritis and hyperlipidemia and peripheral vascular disease and prior history of smoking presents to ER for possible allergic reaction. Patient states that he has been having on and off pneumonia and was given antibiotics in the form of Augmentin which he has been taking for the past 1 to 2 days. Today family noticed that he has been having rash all over his body mainly in the face chest and arms. He was also found to have lip swelling and felt too weak to get up from his chair. EMS found the patient to be hypotensive and systolic blood pressure was in 80s. He was given IV Solu-Medrol and IV fluids and epinephrine and transported to ER. Patient seems to be more awake and alert now but is a poor historian. Hard of hearing as well. Patient did take Augmentin course previously without any reaction. Denies any fever or chills. No chest pain. No nausea vomiting abdominal pain or diarrhea. Denies any recent illnesses. Patient follows with pulmonary as an outpatient. On admission EKG showed sinus tachycardia Chest x-ray showed chronic emphysematous changes without evidence of focal airspace consolidation. Urinalysis is negative for infection. Laboratory data showed WBC 9.6 hemoglobin 11.0 and platelets 112 Sodium 136 potassium 4.0 chloride 107 bicarb is 21 BUN 65 creatinine 1.68 and blood sugar is 127 AST 39 ALT 63 alk phos 120 troponin (x1 negative and albumin 3.0. 01/04/2022 Patient is lying in the bed. Awake alert but seems to be slightly confused. CT head showed no acute Also hard of hearing. Currently on room air. Patient is still having rash especially on the chest and back.. He is being continued on IV Solu-Medrol Benadryl and Pepcid. Patient has been afebrile. No nausea vomiting or diarrhea. Laboratory data showed WBC 9.1 10.4 and platelets 162, sodium 139 potassium 4.2 BUN. 59.9 point and creatinine 1.4 ID and pulmonary is on board., Pro-calcitonin was 4.2. 01/05/2022 Patient is currently lying in bed. Awake alert and oriented x3. Still having redness of the face and rash all over the body. Patient has been afebrile. Continue IV Solu-Medrol decreased to twice daily and continue with Benadryl as needed and Pepcid. Patient had CT chest done yesterday showed mediastinal and bronchial adenopathy. Axillary adenopathy. Appears to be new compared to old exam. Lymphoma possible. Oncology was consulted for evaluation. Mentation is better today. No chest pain or shortness of breath. Cough impr alvin as well. Laboratory test showed WBC 7.97 hemoglobin 10.6 and platelets 168 Sodium 141 potassium 4.3 chloride 109 bicarb is 22.8 and creatinine 1.7 today. Current medications reviewed. Objective - Vital Signs Vital signs: Vital Signs Temp 97.8 F 01/05/22 15:00 Pulse 104 H 01/05/22 15:00 Resp 18 01/05/22 15:00 BP 155/72 01/05/22 15:00 Pulse Ox 96 01/05/22 15:00 FiO2 Intake & Output 01/04/22 01/05/22 01/05/22 18:59 06:59 18:59 Intake Total 296 240 Balance 296 240 Intake: Oral 296 240 Other: Voiding Method Toilet Toilet # Voids 2 3 3 - Exam PHYSICAL EXAMINATION: Patient is lying in the bed comfortably, no acute distress, awake alert and oriented. Drowsy, confused. Hard of hearing.. HEENT: Normocephalic. Neck is supple. Pupils reactive. Nostrils clear. Oral cavity is moist. Neck reveals no JVD, carotid bruits, or thyromegaly. CHEST EXAMINATION: Trachea is central. Symmetrical expansion. Lung silver clear to auscultation and percussion. CARDIAC: Normal S1, S2 with no gallops. Systolic murmur present. ABDOMEN: Soft. Bowel sounds present. Nontender. No organomegaly. No abdominal bruits. Extremities: reveal no edema. No clubbing or cyanosis Neurologically awake, alert, oriented x3 with well-coordinated movements. No focal deficits noted Skin: Patient does have macular rash all over body.. Psychiatric: Coperative. Could not be assessed completely., Musculoskeletal: No joint swelling or deformity. Normal range of motion. - Labs CBC & Chem 7: 01/06/22 05:23 01/06/22 05:23 Labs: Abnormal Lab Results - Last 24 Hours (Table) 01/05/22 01/05/22 Range/Units 05:46 05:46 RBC 3.64 L (4.40-5.60) X 10*6/uL Hgb 10.6 L (13.0-17.0) g/dL Hct 32.5 L (39.6-50.0) % Immature Gran # 0.06 H (0.00-0.04) X 10*3/uL Anion Gap 9.20 L (10.00-18.00) mmol/L BUN 64.2 H (9.0-27.0) mg/dL Creatinine 1.7 H (0.6-1.5) mg/dL Est GFR (CKD-EPI)AfAm 41.1 L (60.0-200.0) Est GFR (CKD-EPI)NonAf 35.5 L (60.0-200.0) BUN/Creatinine Ratio 37.76 H (12.00-20.00) Ratio Glucose 135 H (70-110) mg/dL Assessment and Plan Assessment: Acute allergic reaction/generalized macular rash. Suspected to be due to Augmentin. Hypotension and tachycardia on admission. Improved now. Mediastinal and bronchial adenopathy and axillary adenopathy. Possible lymphoma suspected.New compared to old exam. Possible interstitial pneumonia versus underlying interstitial lung disease changes.Pneumonia unlikely. Interstitial pulmonary fibrosis Coronary arteries history of CABG Hypertension Osteoarthritis Peripheral vascular disease Bilateral peripheral neuropathy nondiabetic Macular degeneration Previous history of smoking DVT prophylaxis Heparin subcu Plan: Patient was given a dose of IV Solu-Medrol and continue with IV Solu-Medrol 60 mg every 12 hourly and Benadryl and Zantac. Patient is tolerating oral diet. IV hydration has been on hold. CT chest showed lymphadenopathy and oncology was consulted. Flow cytometry and LDH was ordered. Continue with symptomatic management and follow closely. Discussed with family at bedside in detail. Prognosis guarded at this time. Time with Patient: Greater than 30
--- NOTE | 2022-01-06 23:02 | P.PN ---
Subjective Progress Note Date: 01/06/22 Patient is a 86-year-old male with a known history of interstitial pulmonary fibrosis, coronary artery disease history of CABG, hypertension, osteoarthritis and hyperlipidemia and peripheral vascular disease and prior history of smoking presents to ER for possible allergic reaction. Patient states that he has been having on and off pneumonia and was given antibiotics in the form of Augmentin which he has been taking for the past 1 to 2 days. Today family noticed that he has been having rash all over his body mainly in the face chest and arms. He was also found to have lip swelling and felt too weak to get up from his chair. EMS found the patient to be hypotensive and systolic blood pressure was in 80s. He was given IV Solu-Medrol and IV fluids and epinephrine and transported to ER. Patient seems to be more awake and alert now but is a poor historian. Hard of hearing as well. Patient did take Augmentin course previously without any reaction. Denies any fever or chills. No chest pain. No nausea vomiting abdominal pain or diarrhea. Denies any recent illnesses. Patient follows with pulmonary as an outpatient. On admission EKG showed sinus tachycardia Chest x-ray showed chronic emphysematous changes without evidence of focal airspace consolidation. Urinalysis is negative for infection. Laboratory data showed WBC 9.6 hemoglobin 11.0 and platelets 112 Sodium 136 potassium 4.0 chloride 107 bicarb is 21 BUN 65 creatinine 1.68 and blood sugar is 127 AST 39 ALT 63 alk phos 120 troponin (x1 negative and albumin 3.0. 01/04/2022 Patient is lying in the bed. Awake alert but seems to be slightly confused. CT head showed no acute Also hard of hearing. Currently on room air. Patient is still having rash especially on the chest and back.. He is being continued on IV Solu-Medrol Benadryl and Pepcid. Patient has been afebrile. No nausea vomiting or diarrhea. Laboratory data showed WBC 9.1 10.4 and platelets 162, sodium 139 potassium 4.2 BUN. 59.9 point and creatinine 1.4 ID and pulmonary is on board., Pro-calcitonin was 4.2. 01/05/2022 Patient is currently lying in bed. Awake alert and oriented x3. Still having redness of the face and rash all over the body. Patient has been afebrile. Continue IV Solu-Medrol decreased to twice daily and continue with Benadryl as needed and Pepcid. Patient had CT chest done yesterday showed mediastinal and bronchial adenopathy. Axillary adenopathy. Appears to be new compared to old exam. Lymphoma possible. Oncology was consulted for evaluation. Mentation is better today. No chest pain or shortness of breath. Cough impr alvin as well. Laboratory test showed WBC 7.97 hemoglobin 10.6 and platelets 168 Sodium 141 potassium 4.3 chloride 109 bicarb is 22.8 and creatinine 1.7 today. 01/06/2022 Patient is able to walk in the room. No complaints of chest pain or shortness of breath. No nausea vomiting abdominal pain or diarrhea. Redness of the face and generalized rash is improving. No fever no chills. No cough or sputum production. No headache or dizziness or lightheadedness. Patient is being continued on IV Solu-Medrol, Benadryl as needed and Pepcid 20 mg IV daily. Symptomatically improving. Laboratory data showed WBC 8.8 hemoglobin 10.6 and platelets 193 Sodium 140 potassium 4.4 chloride 110 bicarb is 24.1 BUN 55.7 creatinine 1.5. Lymphadenopathy work-up is pending. Current medications reviewed. Objective - Vital Signs Vital signs: Vital Signs Temp 96.9 F L 01/06/22 18:57 Pulse 81 01/06/22 18:57 Resp 18 01/06/22 18:57 BP 149/75 01/06/22 18:57 Pulse Ox 99 01/06/22 09:42 FiO2 Intake & Output 01/06/22 01/06/22 01/07/22 06:59 18:59 06:59 Other: Voiding Method Toilet Toilet # Voids 3 2 - Exam PHYSICAL EXAMINATION: Patient is lying in the bed comfortably, no acute distress, awake alert and oriented. Hard of hearing.. HEENT: Normocephalic. Neck is supple. Pupils reactive. Nostrils clear. Oral cavity is moist. Neck reveals no JVD, carotid bruits, or thyromegaly. CHEST EXAMINATION: Trachea is central. Symmetrical expansion. Lung silver clear to auscultation and percussion. CARDIAC: Normal S1, S2 with no gallops. Systolic murmur present. ABDOMEN: Soft. Bowel sounds present. Nontender. No organomegaly. No abdominal bruits. Extremities: reveal no edema. No clubbing or cyanosis Neurologically awake, alert, oriented x3 with well-coordinated movements. No focal deficits noted Skin: Patient does have macular rash all over body.. Psychiatric: Coperative. non suicidal., Musculoskeletal: No joint swelling or deformity. Normal range of motion. - Labs CBC & Chem 7: 01/06/22 05:23 01/06/22 05:23 Labs: Abnormal Lab Results - Last 24 Hours (Table) 01/06/22 01/06/22 Range/Units 05:23 05:23 RBC 3.69 L (4.40-5.60) X 10*6/uL Hgb 10.6 L (13.0-17.0) g/dL Hct 32.3 L (39.6-50.0) % Immature Gran # 0.17 H (0.00-0.04) X 10*3/uL Eosinophils # 1.00 H (0.04-0.35) X 10*3/uL Chloride 110 H (96-109) mmol/L Anion Gap 5.90 L (10.00-18.00) mmol/L BUN 55.7 H (9.0-27.0) mg/dL Est GFR (CKD-EPI)AfAm 47.8 L (60.0-200.0) Est GFR (CKD-EPI)NonAf 41.3 L (60.0-200.0) BUN/Creatinine Ratio 37.13 H (12.00-20.00) Ratio Glucose 125 H (70-110) mg/dL Assessment and Plan Assessment: Acute allergic reaction/generalized macular rash. Suspected to be due to Augmentin. Hypotension and tachycardia on admission. Improved now. Mediastinal and bronchial adenopathy and axillary adenopathy. Possible lymphoma suspected.New compared to old exam. Possible interstitial pneumonia versus underlying interstitial lung disease changes.Pneumonia unlikely. Interstitial pulmonary fibrosis Coronary arteries history of CABG Hypertension Osteoarthritis Peripheral vascular disease Bilateral peripheral neuropathy nondiabetic Macular degeneration Previous history of smoking DVT prophylaxis Heparin subcu Plan: Patient was given a dose of IV Solu-Medrol and continue with IV Solu-Medrol 60 mg every 12 hourly and Benadryl and Zantac. Patient is tolerating oral diet. IV hydration has been on hold. CT chest showed lymphadenopathy and oncology was consulted. Flow cytometry and LDH was ordered. Continue with symptomatic management and follow closely. Discussed with family at bedside in detail. Prognosis guarded at this time. Time with Patient: Greater than 30
[2022-01-06] MEDS: QUEtiapine 25 MG TAB PO PRN (23:38)
[2022-01-07 05:03] VITALS: PULSE 75; RESP 16
[2022-01-07] MEDS: carBAMazepine 200 MG TAB PO SCH (08:20)
[2022-01-07] MEDS: HEPARIN SODIUM,PORCINE/PF 5,000 UNIT/0.5 ML SYRINGE SQ SCH (08:20)
[2022-01-07] MEDS: FAMOTIDINE 20 MG/2 ML VIAL IV SCH (08:20)
[2022-01-07] MEDS: METOPROLOL TARTRATE 25 MG TAB PO SCH (08:20)
[2022-01-07] MEDS: methylPREDNISolone SOD SUCCI 40 MG/ML 1 ML VIAL IV SCH (08:20)
[2022-01-07 11:41] VITALS: BP 155/77; TEMP 97.9
--- NOTE | 2022-01-07 14:27 | P.PN ---
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 Fever of unknown region has improved significantly with treatment however reoccurred Mediastinal and bronchial and axillary lymphadenopathy Hypersensitivity pneumonitis by history Pulmonary fibrosis 01/07/2022, patient seen eval examined during the rounds labs reviewed medications reviewed facial erythematous edema is significantly on almost back to baseline, target lesion in the trunk and extremities improved and stable, patient remains on IV steroids now being switched to oral, 2 daughters were there have discussed with them about further management plan, off note that patient never spiked a fever, patient had intermittent low-grade temperature at home max was 99.4, 01/06/2022, patient seen eval reexamined during the rounds sitting upright on the bed eating breakfast, patient has been room air oxygen saturation is stable, still have intermittent cough which is dry and nonproductive, denies any chest pain, patient remains afebrile, and labs from today reviewed white cell count is 8.8, hemoglobin stable 10.6, chemistry reviewed BUN/creatinine is 55/1.5 overall stable. The rash on the face is more homogenous and again slowly fading comparatively on the trunk and extremities which is in the form of target lesions is nonpruritic and also slowly fading, patient remains on IV steroids gentle rehydration S2 blockers along with Benadryl. Noted that oncology is evaluating the patient will discuss with them as well 01/05/2022, patient seen eval reexamined during the rounds labs reviewed medications reviewed computed tomography scan reviewed as well, fever Petrin has improved, current temperature is 97.8, blood pressure is 155/72 saturations 96%, diffuse target lesion on the skin and rash is present but comparatively fading, lip swelling Swelling in the Improved Significantly Patient Able to Swallow, 2 Daughters Are Present at Bedside, Reviewed Computed Tomography Scan Finding of Mediastinal and Bronchial Adenopathy Patient is a 86-year-old male well-known to me as being one of my office patient. Agent has a long-standing history of hypersensitivity pneumonitis and pulmonary fibrosis related to that patient eventually recovered completely about 5 years ago has been on oxygen off and on eventually oxygen saturation daytime has been good decided not to use oxygen. In the last 3 months patient has been having dry nonproductive cough later on have some productive cough and intermittent low-grade fever of bronchoscopy was done positive for her M catarrhalis, patient was treated with Bactrim followed by Augmentin as an ALLERGIC reaction to Bactrim occurred at the end of therapy, fever breakdown and appetite improved patient was doing well. Patient however started having intermittent low-grade fever once a day but at the same time was nauseous as well patient was prescribed Augmentin this time has a severe ALLERGY reaction and brought into the hospital. Has some evidence of confusion as well, EKG sinus tachycardia chest x-ray chronic emphysematous changes without any evidence of focal airspace consolidation, brain computed tomography scan noted to have cerebral atrophy and no acute intracranial changes identified. Patient has been on steroids patient is swelling significantly improved however rash persists but appears to be less symptomatic with absence of pruritus. His labs are significant for white cell count 9.1, hemoglobin and hematocrit 10/33, sodium 1:30 and temperature 4.2 BUN and creatinine of 59/1.4 which is down from 65/1.68 patient is being continued on Benadryl and H2 audie as well as IV steroids and gently being hydrated Objective - Vital Signs Vital signs: Vital Signs Temp 97.9 F 01/07/22 11:27 Pulse 75 01/07/22 11:27 Resp 16 01/07/22 11:27 BP 155/77 01/07/22 11:27 Pulse Ox 97 01/07/22 11:27 FiO2 Intake & Output 01/06/22 01/07/22 01/07/22 18:59 06:59 18:59 Other: Voiding Method Toilet Toilet # Voids 2 6 - Exam - Constitutional General appearance: average body habitus, cooperative, disheveled, mild distress - EENT Eyes: EOMI, PERRLA ENT: normal oropharynx Ears: bilateral: normal - Neck Neck: normal ROM Carotids: bilateral: upstroke normal Thyroid: bilateral: normal size - Respiratory Respiratory: bilateral: rales (Basal dry Rales) - Cardiovascular Rhythm: regular Heart sounds: normal: S1, S2 - Gastrointestinal General gastrointestinal: normal bowel sounds, soft - Integumentary Diffuse rash with target lesions in the trunk as well as lower extremity, diffuse erythematous rash on the face - Neurologic Neurologic: CNII-XII intact - Musculoskeletal Musculoskeletal: gait normal, generalized weakness, strength equal bilaterally - Psychiatric Psychiatric: A&O x's 3, appropriate affect, intact judgment & insight - Labs CBC & Chem 7: 01/06/22 05:23 01/06/22 05:23 Assessment and Plan Assessment: Chronic kidney disease with GFR of 40% 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 Fever/low-grade temperature of unknown origin, however patient never spiked a fever or never had a temperature in the hospital Mediastinal and bronchial hilar lymphadenopathy along with axillary lymphadenopathy of unclear etiology not seen and computed tomography scan 2018, will likely require further investigation, given current situation probably best to do a computed tomography scan with IV contrast once his rash and skin lesions improved, however concern is chronic kidney disease may need nephrology evaluation prior to CAT scan Hypersensitivity pneumonitis by history Pulmonary fibrosis Plan: Agree with IV hydration, steroids, [id number], and Benadryl, can be switched to by mouth Reviewed computed tomography scan of the chest without contrast, will further discuss with oncology team, they also like to follow up as outpatient Patient will need repeat computed tomography scan with IV dye once clinically improved to assess lymphadenopathy Further plan of care as per clinical response of the patient Time with Patient: Greater than 30
--- NOTE | 2022-01-07 16:46 | P.PN ---
Subjective Progress Note Date: 01/07/22 Principal diagnosis: Rash, mediastinal and axillary lymphadenopathy. In follow-up today patient's rash is slightly improved, it is regressing distal to proximal. No pain with rash. Some of the larger patches of rash look like in the future the skin may peel off. No new symptoms, the rash cont to not be painful or puritic. Objective - Vital Signs Vital signs: Vital Signs Temp 97.9 F 01/07/22 11:27 Pulse 75 01/07/22 11:27 Resp 16 01/07/22 11:27 BP 155/77 01/07/22 11:27 Pulse Ox 97 01/07/22 11:27 FiO2 Intake & Output 01/06/22 01/07/22 01/07/22 18:59 06:59 18:59 Other: Voiding Method Toilet Toilet # Voids 2 6 6 # Bowel Movements 1 - Constitutional General appearance: Present: average body habitus, cooperative, no acute distress - EENT Eyes: Present: anicteric sclerae, EOMI ENT: Present: hearing grossly normal, normal oropharynx - Respiratory Details: resp even and unlabored - Peripheral edema leg Peripheral Edema: bilateral: None - Integumentary Integumentary: Present: rash - Neurologic Neurologic: Present: CNII-XII intact - Musculoskeletal Musculoskeletal: Present: strength equal bilaterally - Psychiatric Psychiatric: Present: A&O x's 3, appropriate affect, intact judgment & insight - Labs CBC & Chem 7: 01/06/22 05:23 01/06/22 05:23 Assessment and Plan (1) Allergic reaction to drug Status: Acute Priority: High Code(s): T78.40XA - ALLERGY, UNSPECIFIED, INITIAL ENCOUNTER SNOMED Code(s): 542734398 (2) Mediastinal lymphadenopathy Status: Acute Priority: Medium Code(s): R59.0 - LOCALIZED ENLARGED LYMPH NODES SNOMED Code(s): 94518699 Plan: Reaction to antibiotic, severe rash. Patient cont on Benadryl, steroids and Pepcid. The rash is stable and starting to regress. CT of the chest without contrast showing mediastinal and bronchial adenopathy, axillary adenopathy. This appears new compared to previous exam 10/17/17, as well as small pleural effusions bilaterally. Not certain if this is a reactive process to patient's antibiotic allergic reaction. Labs reviewed, mild, normocytic anemia, mild kidney disease. LDH is normal. Flow cytometry pending. F/U in 4-[address] prior to visit to reassess the LAD. Additional studies as needed. Reviewed hospital course with family at bedside. Discussed follow up plans. They verbalized understanding the plan and agree with the same.
== END 2022-01-07 15:21 | disposition home health service (06) | DRG 596 ==
LOC: EC 17:53 → 6NMEDSUR 21:06 → OBSVTOIN 01-05 08:38 → 5NMEDONC 01-06 06:57
PROVIDERS: ADMIT Hospitalist; ATTEND Hospitalist
DX: L51.1 Stevens-Johnson syndrome (principal); J67.9 Hypersensitivity pneumonitis due to unspecified organic dust; J84.9 Interstitial pulmonary disease, unspecified; C85.90 Non-Hodgkin lymphoma, unspecified, unspecified site; D63.1 Anemia in chronic kidney disease; I12.9 Hypertensive chronic kidney disease with stage 1 through stage 4 chronic kidney disease, or unspecified chronic kidney disease; I73.9 Peripheral vascular disease, unspecified; N18.9 Chronic kidney disease, unspecified; I95.9 Hypotension, unspecified; J84.10 Pulmonary fibrosis, unspecified; T36.1X5A Adverse effect of cephalosporins and other beta-lactam antibiotics, initial encounter; T36.0X5A Adverse effect of penicillins, initial encounter; E78.5 Hyperlipidemia, unspecified; I25.10 Atherosclerotic heart disease of native coronary artery without angina pectoris; A08.4 Viral intestinal infection, unspecified; R41.0 Disorientation, unspecified; R59.0 Localized enlarged lymph nodes; R00.0 Tachycardia, unspecified; H91.90 Unspecified hearing loss, unspecified ear; G62.9 Polyneuropathy, unspecified; H35.30 Unspecified macular degeneration; M17.0 Bilateral primary osteoarthritis of knee; R60.0 Localized edema; Z28.310 Unvaccinated for COVID-19; Z87.891 Personal history of nicotine dependence; Z95.1 Presence of aortocoronary bypass graft; Z79.899 Other long term (current) drug therapy; Z79.82 Long term (current) use of aspirin; Z88.5 Allergy status to narcotic agent; Z88.2 Allergy status to sulfonamides; Z88.1 Allergy status to other antibiotic agents; Z88.0 Allergy status to penicillin
CPT/HCPCS: 36415; 70450; 71045; 71250; 80048; 80053; 81001; 83615; 84145; 84484; 85025; 86140; 87636; 93005; 96361; 96374; 99284